=== PATIENT | male | born 1955 | race Caucasian/White ===

== ENCOUNTER 2016-04-26 09:58 | Emergency (ER) | payer OTHER ==
[~2016-04-26] VITALS: Ht 180.3 cm; Wt 87.1 kg
[~2016-04-26 09:58] MED LIST: ASPI81TA28 PO; B-CO-25 PO; HYDR-5688 PO; METO-217 PO; MULT-916 PO
[2016-04-26 10:02] VITALS: TEMP 36.5; Ht 180.3 cm; Wt 87.1 kg
[2016-04-26] MEDS ORDERED: METOPROLOL TARTRATE 1 MG/ML VIAL IV STA (10:29)
[2016-04-26 10:31] VITALS: O2SAT 96
[2016-04-26] MEDS ORDERED: METO50TA17 PO (10:50)
--- NOTE | 2016-04-26 10:58 | DIAGNOSTIC IMAGING REPORT ---
CHEST ONE VIEW PORTABLE CLINICAL HISTORY: Fever. Sepsis. Tachycardia. COMPARISON STUDY: Chest radiograph July 12, 2011. FINDINGS: Lung volumes are normal. No consolidation is present. There is no pneumothorax or pleural effusion. Cardiac size is normal. Mediastinal contours are normal. Linear left lower lung opacity likely reflects atelectasis or scarring. There is no evidence of pulmonary edema. IMPRESSION: No acute cardiopulmonary findings. Electronically signed by: Mickey Drummond M.D. 04/26/2016 10:56 AM Dictated Date/Time: 04/26/2016 10:55 AM
[2016-04-26 11:09] LABS: BASO % 0.6 %; BASO ABS # 0.03 K/uL (0-0.2); COMPLETE YES; EOS % 0.9 %; HEMATOCRIT 45.4 % (42-52); LYMPH % 13.5 %; LYMPH ABS # 0.73 K/uL (1.2-3.4); MEAN CELL VOLUME 80.9 fL (80-100); MEAN CORPUSCULAR HEMOGLOBIN 29.8 pg (25-34); MEAN CORPUSCULAR HGB CONC 36.8 g/dl (32-36); MEAN PLATELET VOLUME 9.1 fL (7.4-10.4); MONO % 8.3 %; NEUT % 76.7 %; PLATELET COUNT 236 K/uL (130-400); RED BLOOD COUNT 5.61 M/uL (4.7-6.1)
[2016-04-26 11:18] LABS: BLOOD UREA NITROGEN 18 mg/dl (7-18); BUN/CREATININE RATIO 15.3 (10-20); CALCIUM 9.1 mg/dl (8.5-10.1); CARBON DIOXIDE 27 mmol/L (21-32); CHLORIDE 107 mmol/L (98-107); GLUCOSE 134 mg/dl (70-99); POTASSIUM 4.4 mmol/L (3.5-5.1); SODIUM 141 mmol/L (136-145)
[2016-04-26 11:22] LABS: PARTIAL THROMBOPLASTIN RATIO 1.2; PROTHROMBIN TIME (PATIENT) 10.4 SECONDS (9.0-12.0)
[2016-04-26] MEDS ORDERED: APIX1TAB3 PO ×2 (12:57→12:58)
--- NOTE | 2016-04-26 12:59 | EMERGENCY ROOM VISIT NOTE ---
History Report prepared by Valentin: Jumana Galvin Under the Supervision of: Dr. All Triplett D.O. First contact with patient: 10:26 Chief Complaint: TACHYCARDIA Stated Complaint: FAST HEART RATE Nursing Triage Summary: Patient stated " I went into A-fib around 6:30pm last evening." Patient denies SOB or chest pains. Patient stated history of A-fib. PT takes metoprolol twice a day. Patient stated "I took a dose last evening around 7pm, 3 am & 9am this morning." History of Present Illness The patient is a 60 year old male who presents to the Emergency Room with complaints of persistent tachycardia that began around 0 last evening. The patient notes that he has a history of atrial fibrillation but states that he is normally in a normal sinus rhythm. He states that last night he noticed that his rate went into atrial fibrillation around 1830 this morning. The patient states that he takes Metoprolol for his Atrial fibrillation, noting that he took it at 1900 last evening and 0300 this morning. He additionally notes that he takes 81mg of aspirin daily. The patient denies any chest pain or shortness of breath. Source of History: patient Onset: 1829 last evening Position: other (global) Quality: other (tachycardia) Timing: other (persistent) Associated Symptoms: No SOB, No chest pain Review of Systems See HPI for pertinent positives & negatives. A total of 10 systems reviewed and were otherwise negative. Past Medical & Surgical Medical Problems: (1) Atrial fibrillation Family History Heart disease Social History Smoking Status: Never Smoker Smokeless Tobacco Use: No Alcohol Use: none Marital Status: Housing Status: lives with significant other Occupation Status: employed Current/Historical Medications Scheduled Aspirin (Aspirin Ec), 81 MG PO DAILY Metoprolol Tartrate (Metoprolol Tartrate), 50 MG PO BID Multiple Vitamins W/ Minerals (Multivitamin Adults 50+), 1 TAB PO DAILY Allergies Coded Allergies: NO KNOWN DRUG ALLERGIES (Verified Allergy, Unknown, ., 03/04/16) Physical Exam Vital Signs Date Time Temp Pulse Resp B/P Pulse Ox O2 Delivery O2 Flow Rate FiO2 04/26/16 12:21 78 20 113/85 98 Room Air 04/26/16 11:08 84 20 109/78 96 Room Air 04/26/16 10:41 96 114/85 04/26/16 10:37 96 20 114/85 97 Room Air 04/26/16 10:31 96 Room Air 04/26/16 10:20 96 Room Air 04/26/16 10:14 90 04/26/16 10:12 97 Room Air 04/26/16 10:02 36.5 89 18 127/87 97 Room Air Physical Exam CONSTITUTIONAL/VITAL SIGNS: Reviewed / noted above. GENERAL: Non-toxic in appearance. INTEGUMENTARY: Warm, dry, and [place]. HEAD: Normocephalic. EYES: without scleral icterus or trauma. ENT/OROPHARYNX: clear and moist. LYMPHADENOPATHY/NECK: Is supple without lymphadenopathy or meningismus. RESPIRATORY: Lungs clear and equal. CARDIOVASCULAR: Regular rate, irregular rhythm. GI/ABDOMEN: Soft and nontender. No organomegaly or pulsatile mass. No rebound or guarding. Normal bowel sounds. EXTREMITIES: Warm and well perfused. BACK: No CVA tenderness. NEUROLOGICAL: Intact without focal deficits. PSYCHIATRIC: normal affect. MUSCULOSKELETAL: Normally developed with good muscle tone. Medical Decision & Procedures ER Provider Diagnostic Interpretation: X ray results and stated below per my interpretation and radiology interpretation. CHEST ONE VIEW PORTABLE CLINICAL HISTORY: Fever. Sepsis. Tachycardia. COMPARISON STUDY: Chest radiograph July 12, 2011. FINDINGS: Lung volumes are normal. No consolidation is present. There is no pneumothorax or pleural effusion. Cardiac size is normal. Mediastinal contours are normal. Linear left lower lung opacity likely reflects atelectasis or scarring. There is no evidence of pulmonary edema. IMPRESSION: No acute cardiopulmonary findings. Electronically signed by: Mickey Drummond M.D. 04/26/2016 10:56 AM Dictated Date/Time: 04/26/2016 10:55 AM Laboratory Results 04/26/16 10:16 Red Blood Count 5.61, Mean Corpuscular Volume 80.9, Mean Corpuscular Hemoglobin 29.8, Mean Corpuscular Hemoglobin Concent 36.8, Mean Platelet Volume 9.1, Neutrophils (%) (Auto) 76.7, Lymphocytes (%) (Auto) 13.5, Monocytes (%) (Auto) 8.3, Eosinophils (%) (Auto) 0.9, Basophils (%) (Auto) 0.6, Neutrophils # (Auto) 4.14, Lymphocytes # (Auto) 0.73, Monocytes # (Auto) 0.45, Eosinophils # (Auto) 0.05, Basophils # (Auto) 0.03 04/26/16 10:15 Test 04/26/16 10:15 04/26/16 10:16 Anion Gap 7.0 mmol/L (3-11) Est Creatinine Clear Calc Drug Dose 71.4 ml/min Estimated GFR () 76.8 Estimated GFR (Non- 66.3 BUN/Creatinine Ratio 15.3 (10-20) Calcium Level 9.1 mg/dl (8.5-10.1) Troponin I < 0.015 ng/ml (0-0.045) Thyroid Stimulating Hormone (TSH) 3.430 uIu/ml (0.300-4.500) White Blood Count 5.40 K/uL (4.8-10.8) Red Blood Count 5.61 M/uL (4.7-6.1) Hemoglobin 16.7 g/dL (14.0-18.0) Hematocrit 45.4 % (42-52) Mean Corpuscular Volume 80.9 fL (80-100) Mean Corpuscular Hemoglobin 29.8 pg (25-34) Mean Corpuscular Hemoglobin Concent 36.8 g/dl (32-36) Platelet Count 236 K/uL (130-400) Mean Platelet Volume 9.1 fL (7.4-10.4) Neutrophils (%) (Auto) 76.7 % Lymphocytes (%) (Auto) 13.5 % Monocytes (%) (Auto) 8.3 % Eosinophils (%) (Auto) 0.9 % Basophils (%) (Auto) 0.6 % Neutrophils # (Auto) 4.14 K/uL (1.4-6.5) Lymphocytes # (Auto) 0.73 K/uL (1.2-3.4) Monocytes # (Auto) 0.45 K/uL (0.11-0.59) Eosinophils # (Auto) 0.05 K/uL (0-0.5) Basophils # (Auto) 0.03 K/uL (0-0.2) RDW Standard Deviation 34.7 fL (36.4-46.3) RDW Coefficient of Variation 12.0 % (11.5-14.5) Immature Granulocyte % (Auto) 0.0 % Immature Granulocyte # (Auto) 0.00 K/uL (0.00-0.02) Prothrombin Time 10.4 SECONDS (9.0-12.0) Prothromb Time International Ratio 1.0 (0.9-1.1) Activated Partial Thromboplast Time 31.1 SECONDS (21.0-31.0) Partial Thromboplastin Ratio 1.2 Laboratory results as stated above per my review. Medications Administered Medications (Trade) Dose Ordered Sig/Adam Route Start Time Stop Time Status Last Admin Dose Admin Metoprolol Tartrate (Lopressor Iv) 5 mg NOW STAT IV 04/26/16 10:29 04/26/16 10:31 DC 04/26/16 10:41 5 MG ECG Indication: tachycardia Rate (beats per minute): 90 Rhythm: atrial fibrillation Findings: no acute ischemic change, no ectopy ED Course 1027: Previous medical records were reviewed. The patient was evaluated in room A3. A complete history and physical examination was performed. 1029: Ordered Lopressor IV 5 mg IV. 1055: I discussed the patients case with Dr. Avitia, Cardiology. He states that the patient should be started on Eliquis and can follow up in the office. 1100: I reevaluated the patient and he is resting comfortably. I discussed Dr. Avitia, Cardiologys plan with him. He verbalized complete understanding and agreement. We are awaiting his lab results. 1248: I reevaluated the patient and he is resting comfortably. I discussed the exam findings and I discussed the treatment plan. He verbalized complete understanding and agreement. He is ready to go home. 1300: Ordered Eliquis Tab 5 mg PO. Medical Decision the differential was considered includes acute myocardial infarction, acute coronary syndrome, myocarditis, pericarditis, pericardial effusions /tamponad, esophageal perforation, thoracic aortic dissection, pulmonary embolism, pneumonia, pneumothorax, pancreatitis, shingles, acute cholecystitis, perforated abdominal viscus. This is a 60-year-old male who presents to the ED with a chief complaint of palpitations. The patient has a history of paroxysmal A. fib. He has not been in A. fib for at least a couple of years. The patient states that his symptoms started around 6 PM last night. He states that he took an extra dose of metoprolol 59 g around 3 AM. The patient denies any other symptoms. His vital signs are normal. An EKG shows A. fib at a rate of 90. Blood work was unremarkable. Chest x-ray was also normal. The patient was given 5 mg of IV Lopressor here. He remained in atrial fibrillation. I spoke with Dr. Avitia about the patient. He requested the patient be given Eliquis 5mg twice a day until he follows up with him next week. He anticipates that the patient may spontaneously convert to a sinus rhythm as he has done in the past. He is felt to be stable for discharge. Consults Time Called: 1030 Consulting Physician: Dr. Avitia, Cardiology Returned Call: [phone] I discussed the patients case with Dr. Avitia, Cardiology. He states that the patient should be started on Eliquis and can follow up in the office. Impression Primary Impression: Paroxysmal atrial fibrillation Scribe Attestation The scribe's documentation has been prepared under my direction and personally reviewed by me in its entirety. I confirm that the note above accurately reflects all work, treatment, procedures, and medical decision making performed by me. Departure Information Dispostion Home / Self-Care Prescriptions Apixaban (ELIQUIS) 5 Mg Tab 1 TAB PO BID, #14 TABS Prov: All Triplett D.O. 04/26/16 Referrals No Doctor, Assigned (PCP) Jeb Avitia M.D. Patient Instructions My [facility] Additional Instructions Take Eliquis twice a day until advised by Dr. Avitia. Call their office on Friday if they have not contact you by that time. If your symptoms persist over the weekend, call the on-call number and talk with Dr. Avitia on Friday.
[2016-04-26] MEDS ORDERED: APIXABAN 2.5 MG TAB PO ONE (13:00)
[2016-04-26 13:12] VITALS: BP 116/79; PULSE 89; O2SAT 97
== END 2016-04-26 13:16 | disposition home or self-care (01) ==
LOC: C.EDB 09:59 → C.EDA 13:16
DX: I48.0 Paroxysmal atrial fibrillation (principal); Z79.82 Long term (current) use of aspirin; Z79.899 Other long term (current) drug therapy; Z82.49 Family history of ischemic heart disease and other diseases of the circulatory system

== ENCOUNTER → 2016-07-04 | Outpatient (CLI) | payer OTHER ==
[~2016-07-04] MED LIST changes: +APIX1TAB3 PO; -B-CO-25 PO; -HYDR-5688 PO; -METO-217 PO; +METO50TA17 PO
[2016-07-04 11:04] LABS: BLOOD UREA NITROGEN 19 mg/dl (7-18); BUN/CREATININE RATIO 17.3 (10-20); CALCIUM 8.7 mg/dl (8.5-10.1); CARBON DIOXIDE 25 mmol/L (21-32); CHLORIDE 108 mmol/L (98-107); CHOLESTEROL 143 mg/dl (0-200); GLUCOSE 97 mg/dl (70-99); POTASSIUM 4.3 mmol/L (3.5-5.1); SODIUM 140 mmol/L (136-145); TRIGLYCERIDES 49 mg/dl (0-150); VERY LOW DENSITY LIPOPROT CALC 10 mg/dl
[2016-07-04 11:07] LABS: CHOLESTEROL/HDL RATIO 3.4; HDL CHOLESTEROL 42 mg/dl; LDL CHOLESTEROL CALCULATED 91 mg/dl
== END | disposition home or self-care (01) ==
LOC: C.LAB1850 09:23
PROVIDERS: ATTEND Internal Medicine
DX: Z11.59 Encounter for screening for other viral diseases (principal); I48.0 Paroxysmal atrial fibrillation; Z12.5 Encounter for screening for malignant neoplasm of prostate

== ENCOUNTER 2020-05-19 06:48 | Observation (INO) ==
--- NOTE | 2020-04-05 16:10 | PAT Medication Instructions ---
Medication Instructions Date of Service April 05, 2020 Home Medications Medication Instructions Recorded metoprolol tartrate 50 mg tablet 75 mg PO BID #270 tab 06/04/19 Multivitamin 50 Plus 1 tab PO QAM acetaminophen [Tylenol Extra Strength] 1,000 mg PO Q6H PRN metoprolol tartrate 50 mg tablet 75 mg PO BID apixaban [Eliquis] 2.5 mg PO BID PRN flecainide 50 mg PO BID meloxicam 15 mg PO QAM PRN ASK your surgeon for instructions meloxicam 15 mg PO QAM PRN ASK your prescriber and surgeon apixaban [Eliquis] 2.5 mg PO BID PRN (in order for spinal anesthesia, Eliquis needs to be stopped 72 hours/3 days before surgery. Please check if okay with doctor that prescribes this to you) DO NOT take the morning of surgery Multivitamin 50 Plus 1 tab PO QAM Take morning of surgery With a small sip of water, OTHERWISE NOTHING TO EAT OR DRINK AFTER MIDNIGHT: acetaminophen [Tylenol Extra Strength] 1,000 mg PO Q6H PRN (okay to take up to 4 hours prior to surgery if needed) metoprolol tartrate 50 mg tablet 75 mg PO BID flecainide 50 mg PO BID Take evening before surgery acetaminophen [Tylenol Extra Strength] 1,000 mg PO Q6H PRN (if needed) metoprolol tartrate 50 mg tablet 75 mg PO BID flecainide 50 mg PO BID Other Notes If you have any questions please call us at [phone] or [phone] or [phone] or [phone]
--- NOTE | 2020-04-25 12:44 | Communication Note ---
Pt tested Covid positive on 04/12/20. Pt had symptoms of low grade fever, congestion, diarrhea and nausea. 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 Did speak with Angela's office- it is presumed patient will get preop Covid testing 05/10/20 (which if four weeks or 28 days from Covid positive test). Pt is feeling better. Therefore, patient can at this time proceed as scheduled and will await results of preop Covid testing.
--- NOTE | 2020-05-13 13:45 | History and Physical Report ---
DATE OF ADMISSION: 05/19/2020 CHIEF COMPLAINT: Bilateral knee pain and discomfort, left side greater than the right. 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 He has been a patient of Dr. Jay in the past. He has got a long history of bilateral knee pain and discomfort, describes it has gotten worse over time. The left knee bothers him more than the right. He has had injection which helped him for about a week and that is about it. It is global pain. The more he is up and walks, the more his knees hurt. He is more difficulty doing his job due to his knee pain. As the day goes on, his knee became more painful and more unstable. It gives out on him intermittently. He would like to proceed with a knee replacement surgery. PAST MEDICAL HISTORY: 1. Atrial fibrillation, followed by Dr. Avitia, but off all blood thinners and in sinus rhythm on his preoperative EKG. 2. Hypertension. 3. TMJ. PAST SURGICAL HISTORY: Include: 1. Cataract surgery. 2. Colonoscopy. 3. Oral surgery. ALLERGIES: None. CURRENT MEDICINES: Include: 1. Tylenol. 2. Flecainide 50 mg twice a day. 3. Metoprolol 75 mg twice a day. 4. Multivitamin. SOCIAL HISTORY: Significant for 64-year-old male. He is . Works as a [employer]. Does not smoke. FAMILY HISTORY: Noncontributory. REVIEW OF SYSTEMS: Negative for diabetes, neurologic problems, vascular problems or bleeding disorders. He does have a history of atrial fibrillation, well managed. He is currently in sinus rhythm. No chest pain or shortness of breath. No history of DVT or PE. PHYSICAL EXAMINATION: GENERAL: Shows a pleasant, middle-aged male, looks to be in pretty good health. HEENT: Benign. NECK: Supple, no lymphadenopathy. LUNGS: Clear to auscultation. HEART: Has a regular rate and rhythm. ABDOMEN: Soft, nontender, nondistended. EXTREMITIES: Grossly neurovascularly intact except as follows. Examination of both knees reveals the patient ambulates independently. He has got varus alignment to both knees. Examination of the left knee reveals bony hypertrophy medially. He is tender over the medial joint line. Small knee effusion. He has got a varus thrust with weightbearing. Range of motion 5-120. No instability. Examination of the right knee reveals a similar varus deformity. Slight varus thrust. Tender over the medial joint line. Small knee effusion. Range of motion 5-125. X-RAYS: X-rays of both knees were reviewed. Shows advanced bilateral knee DJD. The left side is a bit worse than the right. He has got complete loss of medial joint space, osteophytes, and subchondral sclerosis. ASSESSMENT: A 64-year-old male st[place] with a history of atrial fibrillation, well controlled with advanced bilateral knee degenerative joint disease. He has failed conservative treatment. He would like to have his left knee replaced. PLAN: We will take him to the operating room and do a left total knee replacement. The risks and benefits of this procedure were explained to the patient including but not limited to DVT, PE, , infection, neurological injury, vascular injury, bleeding problem, pain, limited range of motion, stiffness, failure to relieve symptoms, incomplete relief of symptoms, need for further surgery in future, fracture, leg length inequality, nerve palsy, etc. The patient understands and desires to proceed. Informed consent was obtained. We will use aspirin for DVT prophylaxis. We will make sure he takes his flecainide and metoprolol the morning of surgery. He is going to be discharged to home using [facility] home health program in his 's assistance along with his daughter.
--- NOTE | 2020-05-15 16:08 | Anesthesiology Consultation ---
Date of Service May 15, 2020 Assessment & Plan (1) Encounter for pre-operative examination: Per communication note from Cherie Hernández PA-C on 04/25/2020: "Pt tested Covid positive on 04/12/20. Pt had symptoms of low grade fever, congestion, diarrhea and nausea. 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 Did speak with Angela's office- it is presumed patient will get preop Covid testing 05/10/20 (which if four weeks or 28 days from Covid positive test). Pt is feeling better. Therefore, patient can at this time proceed as scheduled and will await results of preop Covid testing." Patient had new covid test 05/15/20. Awaiting results. Chart Review Chart Review: Acceptable Risk for Surgery and Patient NOT seen in Pre Admission Testing History Surgery Operation Date: 05/19/20 07:00 Proposed Procedures p Left Total Knee Replacement - Alcides Collado MD Height/Weight Height: 5 ft 10 in Weight: 90.718 kg Allergies Allergy/AdvReac Type Severity Reaction Status Date / Time No Known Drug Allergies Allergy Unknown . Verified 03/24/20 10:52 Medications Home Medications Medication Instructions Recorded Confirmed Last Taken Multivitamin 50 Plus 1 tab PO QAM 03/05/18 03/24/20 03/05/18 acetaminophen [Tylenol Extra 1,000 mg PO Q6H PRN 03/05/18 03/24/20 12/13/19 Strength] metoprolol tartrate 50 mg tablet 75 mg PO BID #270 tab 06/04/19 03/24/20 12/13/19 apixaban [Eliquis] 2.5 mg PO BID PRN 03/24/20 03/24/20 Unknown flecainide 50 mg PO BID 03/24/20 03/24/20 Unknown meloxicam 15 mg PO QAM PRN 03/24/20 03/24/20 Unknown Wheeled Walker #1 ea 05/04/20 Unknown Past Medical History Medical History (Updated 05/15/20 @ 16:05 by Gui Urbina) Atrial fibrillation medication controlled > follows Dr. Marks Hypertension Migraine Osteoarthritis Right knee DJD Past Family History Family History Grandfather (Paternal) Myocardial infarction Father Prostate cancer Diabetes Denies family history of Ovarian cancer Breast cancer Colorectal cancer Past Surgical History Surgical History Colonic polyp with removal History of cataract surgery RT/LEFT History of colonoscopy History of tooth extraction Social History Smoking Status: Never smoker Do You Dip or Chew Tobacco: No Hx Alcohol Use: No Hx Substance Use: No substance use type: does not use Testing Laboratory Results 04/24/20 WBC: 6.18 H/H: 15.3/42.6 PLATELETS: 250 SODIUM: 140 POTASSIUM: 3.9 CHLORIDE: 108 CO2: 25 BUN: 14 CREATININE: 1.02 GLUCOSE: 101 PT: 10.3 PTT: 30.1 INR: 1.0 Electrocardiogram Date: 04/24/20 Findings: + SB @ (56bpm) *Poor data quality, interpretation may be adversely affected. Compared to EKG from 03/05/18, ST no longer elevated in anterior leads. Chest X-Ray Date: 04/24/20 Findings: + NAD
[~2020-05-19 06:48] MED LIST changes: +ACETAMINOPHEN 500 MG TAB PO SCH; -APIX1TAB3 PO; -ASPI81TA28 PO; +BUPIVACAINE 0.5 % 5 MG/1 ML PF 10ML VIAL ONE; +BUPIVACAINE LIPOSOME/PF 266 MG, BUPIVACAINE/EPINEPHRINE 50 ML, SODIUM CHLORIDE 0.9% 30 ... INFIL SCH; +FAMOTIDINE 20 MG TAB PO SCH; +GABAPENTIN 300 MG CAP PO SCH; +LR 500ML BOLUS, THEN 15ML/HR IV SCH; +LR 60ML/HR IV SCH; -METO50TA17 PO; +METOCLOPRAMIDE HCL 10 MG TABLET PO SCH; -MULT-916 PO; +ROPIVACAINE 0.5% 5 MG/ML 30 ML VIAL ONE; +TRANEXAMIC ACID 1,000 MG **IV Intra-op IV SCH; +TRANEXAMIC ACID 1,000 MG **IV Pre-op IV SCH
[2020-05-19] MEDS ORDERED: KETAMINE 50 MG/5 ML SYRINGE ONE (07:28)
[2020-05-19] MEDS ORDERED: MIDAZOLAM HCL 1 MG/ML 2ML VIAL ONE ×2 (07:28→08:09)
[2020-05-19] MEDS ORDERED: LIDOCAINE HCL 2% 2 ML VIAL/AMP(20MG/ML) INFIL ONE (08:05)
[2020-05-19] MEDS ORDERED: GLYCOPYRROLATE 0.2 MG/ML VIAL ONE (08:05)
[2020-05-19] MEDS ORDERED: ONDANSETRON INJ 2 MG/ML 2 ML VIAL ONE (08:05)
[2020-05-19] MEDS ORDERED: PROPOFOL IV EMULSION 10 MG/ML 20 ML VIAL IV ONE (08:05)
[2020-05-19] MEDS ORDERED: ATROPINE SULFATE 0.1 MG/ML 10ML SYR IV PRN (08:17)
[2020-05-19] MEDS ORDERED: ONDANSETRON INJ 2 MG/ML 2 ML VIAL IV PRN ×2 (08:17→11:13)
[2020-05-19] MEDS ORDERED: KETOROLAC 30 MG/ML VIAL IV PRN (08:17)
[2020-05-19] MEDS ORDERED: HYDROmorphone INJ 1 MG/ML SYRINGE IV PRN (08:17)
[2020-05-19] MEDS ORDERED: ePHEDrine sulfate 50 MG/ML AMP IV PRN (08:17)
[2020-05-19] MEDS ORDERED: SODIUM CHLORIDE 0.9% PF 50 ML VIAL ONE (08:33)
[2020-05-19] MEDS ORDERED: EPINEPHrine INJ 1 MG/ML AMP ONE (08:33)
[2020-05-19] MEDS ORDERED: BUPIVACAINE 0.25% 30 ML VIAL ONE (08:33)
[2020-05-19] MEDS ORDERED: BUPIVACAINE LIPOSOME 1.3% 266 MG/20 ML VIAL ONE (08:33)
[2020-05-19] MEDS ORDERED: BACITRACIN INJ 50,000 UNIT VIAL ONE (08:33)
--- NOTE | 2020-05-19 08:42 | History & Physical Bridge Note ---
Date of Service May 19, 2020 History & Physical Bridge Note I have examined the patient, reviewed the History & Physical and in the interval since the performance of the History & Physical I have noted the following changes of clinical significance: no changes noted
[2020-05-19] MEDS: ceFAZolin 2000MG 2,000 MG/15 ML SYR IV SCH ×2 (08:47→16:57)
--- NOTE | 2020-05-19 10:31 | Post Operative Brief Note ---
PG Immediate Post Op with CF Date of Surgery May 19, 2020 Pre & Post Diagnosis Operation Date: 05/19/20 08:50 Pre-Op Diagnosis: Left Knee Advanced Degenerative Joint Disease Post-Op Diagnosis: Left Knee Advanced Degenerative Joint Disease I identified the patient and participated in the time-out.: Yes Procedure Operation Date: 05/19/20 08:50 Actual Procedures p Left Total Knee Replacement(Left) - Alcides Collado MD Surgeon Alcides Collado MD Plywood Layup Line Core Feeder LUCERO Singletary Estimated Blood Loss 50 Findings Consistent with Post-Op Diagnosis Fluids 1000 cc Specimens Specimen Description: A. Left Knee Bone and Tissue Drains Fitzgerald Catheter Anesthesia Type Spinal MAC Complications none Disposition Accompanied Patient To Recovery: No Disposition: Recovery Room
--- NOTE | 2020-05-19 10:48 | XRay Report ---
LEFT KNEE 2 VIEWS History: Left total knee arthroplasty. Degenerative arthritis. Postop. FINDINGS: The patient is status post a left total knee arthroplasty. The hardware is intact. No fract ure or dislocation. Skin earline are in place. IMPRESSION: Left total knee arthroplasty. No evidence for hardware complication. ACT 112: Negative or not required by law. Electronically signed by: Don Silverman M.D. 05/19/2020 10:47 AM
--- NOTE | 2020-05-19 11:02 | Anesthesiology Progress Note ---
Date of Service May 19, 2020 Anesthesia Post Procedure Vital Signs Vital Signs: Temp Pulse Pulse Resp BP Pulse Ox 05/19/20 10:55 36.4 C L 61 16 119/66 98 05/19/20 10:45 62 16 113/71 100 05/19/20 10:37 36.1 C L 64 16 104/71 100 05/19/20 07:18 36.6 C 67 16 164/86 H 97 Pain Intensity Left Knee: Pain Intensity: 0 Transfer of Care Handoff Completed per policy Notes Mental Status: alert / awake / arousable Patient Amnestic to Procedure: Yes Nausea / Vomiting: adequately controlled Pain: adequately controlled Airway Patency, RR, SpO2: stable & adequate BP & HR: stable & adequate Hydration State: stable & adequate Neuraxial Anesthesia: was administered and sensory block is resolving Anesthetic Complications: no major complications apparent
[2020-05-19] MEDS ORDERED: TAMSULOSIN HCL 0.4 MG CAP PO PRN (11:13)
[2020-05-19] MEDS ORDERED: NALOXONE HCL 0.4 MG/1 ML VIAL/CARP IV PRN (11:13)
[2020-05-19] MEDS ORDERED: MAGNESIUM HYDROXIDE SUSP 30 ML UDC PO PRN (11:13)
[2020-05-19] MEDS ORDERED: METOCLOPRAMIDE HCL INJ 5 MG/ML 2 ML VIAL IV PRN (11:13)
[2020-05-19] MEDS ORDERED: HYDROmorphone INJ 0.5 MG/0.5 ML SYR IV PRN (11:13)
[2020-05-19] MEDS ORDERED: bisacodyL 10 MG SUPP PR PRN (11:13)
[2020-05-19] MEDS ORDERED: diphenhydrAMINE Capsule 25 MG CAP PO PRN (11:13)
[2020-05-19] MEDS ORDERED: oxyCODONE HCL IR 5 MG TAB (IMMEDIATE RELEASE) PO PRN (11:13)
[2020-05-19] MEDS ORDERED: ALUMINUM/MAGNESIUM SUSP 30 ML UDC PO PRN (11:13)
[2020-05-19] MEDS ORDERED: SODIUM CHLORIDE 0.9% 1000ML 1,000 ML IV SCH (11:13)
[2020-05-19] MEDS: KETOROLAC 30 MG/ML VIAL IV SCH ×2 (12:01→16:56)
[2020-05-19] MEDS: ACETAMINOPHEN 500 MG TAB PO SCH ×2 (13:19→22:05)
[2020-05-19] MEDS ORDERED: TRANEXAMIC ACID / 0.7% NACL 1,000 MG/100 ML BAG IV SCH (16:34)
[2020-05-19] MEDS: ASCORBIC ACID 500 MG TAB PO SCH (16:55)
[2020-05-19] MEDS: FERROUS GLUCONATE 324 MG TAB PO SCH (16:55)
--- NOTE | 2020-05-19 17:24 | Operative Report ---
Post Operative Report Pre & Post Diagnosis Operation Date: 05/19/20 08:50 Pre-Op Diagnosis: Left Knee Advanced Degenerative Joint Disease Post-Op Diagnosis: Left Knee Advanced Degenerative Joint Disease I identified the patient and participated in the time-out.: Yes Procedure Operation Date: 05/19/20 08:50 Actual Procedures p Left Total Knee Replacement(Left) - Alcides Collado MD Surgeon Alcides Collado MD Software Quality Manager LUCERO Singletary Estimated Blood Loss 50 Findings Consistent with Post-Op Diagnosis Operative findings revealed advanced left knee DJD. He had extensive grade 4 oyff-so-[id number] disease in the medial compartment with a more spotty grade 4 changes in both felt patellofemoral and lateral compartments. He had a fixed varus deformity to his knee and a slight flexion contracture. Large knee joint effusion. Osteophytes primarily in the medial compartment. Fluids 1000 cc Specimens Left knee sent for pathology. Drains None. Anesthesia Type Spinal MAC Complications none Disposition Accompanied Patient To Recovery: No Disposition: Recovery Room Indications Patient is a 64-year-old very active [place] who has had a long history of bilateral knee pain discomfort left side greater than right. He failed all conservative measures. He elected to see with a left total knee arthroplasty. Description of Procedure Operative implants consisted of: 1 Biomet Vanguard size 75 left posterior stabilized femoral component. 2. Biomet size 75 tibial tray. 3. 10 mm posterior stabilized polyethylene insert. 4. 31 x 8 all polypatella. The patient was taken to the operating identified placed on the operating table supine position protectors were properly padded. IV antibiotics tried by anesthesia team. Spinal anesthetic and abductor canal block had been brought in the holding area. Fitzgerald catheter was placed in sterile fashion. A left thigh turn was then placed in the left lower extremities and prepped and draped in usual sterile fashion. The left leg was elevated exsanguinated with use of an Esmarch and tourniquet placed at 300 mmHg. An anterior approach left knee was then performed to longitudinal incision centered over the patella. Sharp dissection got through subcutaneous tissue down the extensor mechanism. A medial parapatellar arthrotomy incision was made. Some subperiosteal dissection was carried out medially. The fat pad was resected beneath patella tendon. The lateral patellofemoral ligaments were released. The patella was subluxated laterally knee was flexed. The osteophytes were taken off distal femur. The ACL and PCL were then released in the distal femur and the tibia subluxated anteriorly. The external tibial alignment jig was then placed in the interface the tibia and adjusted 14 mm medially. Proximal tibial cut was made remove millimeter bone from the most deficient aspect of the medial tibial plateau. Some osteophytes were taken off medial and posterior medially. I did have to downsize the tibial tray slightly in order to get appropriate rotation. A size 75 tibial tray was selected. Attention drawn the femur. The distal femur was entered with a sharp drill bit intramedullary canal was suction. A left 6 degree valgus cutting guide was placed. This femoral cutting block was pinned in place. Distal femoral cut was made to take an additional 3 mm of bone off distal femur. The femur was then sized to a size 75. The AP cutting block was pinned parallel to the epicondylar axis which was 5 degrees of external rotation. The anterior cut, anterior chamfer, posterior cut, posterior chamfer cuts were made. Box cutting guide was placed in just slight lateral box cut was made. The knee was flexed. The remnants of medial lateral menisci were excised. The osteophytes were taken off the posterior aspect of the femur. A trial femoral component was placed. The tibial tray was pinned in maximum external rotation and the drill and stem punch were used to create defect in proximal tibia for the tibial tray. Knee was then trialed and the 10 mm insert fit most appropriately. Attention drawn the patella. Nipride the patella was cleaned of all soft tissues. Patella thickness measured 23 mm in thickness was cut down to 14. Was sized to a size 31 patella. The lug holes were drilled for 31 patella. The lateral osteophyte is moved. Patella button was placed. Knee was taken through range of motion patella tracked nicely with no thumbs test. Attention drawn to placing permanent components. All trial components were removed. A bone plug was placed in the distal femur limit blood loss. A double batch [place] G cement was mixed. A Biomet Vanguard is size 75 left posterior stabilized femoral component, size 75 tibial tray, 10 mm posterior stabilized polyethylene insert, 31 x 8 all polypatella were then cemented in place. The knee was brought out into full extension total cement hardened. Final cement check was then performed. Pericapsular tissues were injected with total 100 cc of combination of 20 cc of Exparel, 30 cc of normal saline, 50 cc of quarter percent Marcaine with epinephrine. Patient did receive 1 g tranexamic acid. The tear was then let down for final tourniquet time of 60 minutes. Hemostasis assured use electrocautery. Extensor mechanism closed with combination 1 PDS suture and 1 Vicryl suture in [id number]-[id number] fashion. Extensor mechanism checked found to be intact the subcutaneous tissue then closed with 2 Dexon suture in a buried interrupted fashion skin was closed skin earline. The leg was then cleaned and dried a sterile dressing composed Xeroform, 4 x 4's, sterile cast padding, Doyle bandage applied. Patient then transferred to the recovery room in stable condition. Patient tolerated procedure well and there were no complications. I attest to the content of the Intraoperative Record and any orders documented therein. Any exceptions are noted below.
[2020-05-19] MEDS: METOPROLOL TARTRATE 25 MG TAB PO SCH (20:32)
[2020-05-19] MEDS: TAPENTADOL HCL ER 50 MG TABCR PO SCH (20:32)
[2020-05-19] MEDS: DOCUSATE SODIUM 100 MG CAP PO SCH (20:33)
[2020-05-19] MEDS: ASPIRIN 81 MG ECTAB PO SCH (20:33)
[2020-05-19] MEDS: FLECAINIDE ACETATE 100 MG TABLET PO SCH (20:33)
[2020-05-19] MEDS ORDERED: SENNA 8.6 MG TAB PO SCH (21:00)
[2020-05-20] MEDS: KETOROLAC 30 MG/ML VIAL IV SCH ×2 (00:14→05:38)
[2020-05-20] MEDS: ceFAZolin 2000MG 2,000 MG/15 ML SYR IV SCH (01:03)
[2020-05-20] MEDS: ACETAMINOPHEN 500 MG TAB PO SCH (05:38)
[2020-05-20 06:19] LABS: Hematocrit (blood only) 37.6 % (42-52); Hemoglobin 13.1 g/dL (14.0-18.0); Mean Corpuscular Hemoglobin 29.2 pg (25-34); Mean Corpuscular Hgb Conc 34.8 g/dL (32-36); Mean Corpuscular Volume 83.7 fL (80-100); Mean Platelet Volume 8.9 fL (7.4-10.4); Platelet Count 192 K/uL (130-400); RDW Coefficient of Variation 12.5 % (11.5-14.5); RDW Standard Deviation 37.8 fL (36.4-46.3); Red Blood Count 4.49 M/uL (4.7-6.1); White Blood Count 7.74 K/uL (4.8-10.8)
[2020-05-20 06:40] LABS: BUN Creatinine Ratio 15.8 (10-20); Calcium 7.9 mg/dl (8.5-10.1); Creatinine Clr Calc Pharmacy 74.7 ml/min; Est GFR (African American) 77.8; Est GFR (Non-African American) 67.1; Potassium 4.4 mmol/L (3.5-5.1)
[2020-05-20] MEDS ORDERED: dexAMETHasone 4 MG TAB PO SCH (08:00)
[2020-05-20] MEDS: DOCUSATE SODIUM 100 MG CAP PO SCH (08:24)
[2020-05-20] MEDS: ASCORBIC ACID 500 MG TAB PO SCH (08:25)
[2020-05-20] MEDS: FLECAINIDE ACETATE 100 MG TABLET PO SCH (08:25)
[2020-05-20] MEDS: FERROUS GLUCONATE 324 MG TAB PO SCH (08:25)
[2020-05-20] MEDS: ASPIRIN 81 MG ECTAB PO SCH (08:26)
[2020-05-20] MEDS: METOPROLOL TARTRATE 25 MG TAB PO SCH (08:26)
[2020-05-20] MEDS ORDERED: CEROVITE ADV FORMULA TAB PO SCH (09:00)
[2020-05-20] MEDS ORDERED: MULTIVITAMIN TAB PO SCH (09:00)
--- NOTE | 2020-05-20 09:36 | Progress Notes ---
DATE: 05/20/2020 SUBJECTIVE: A 64-year-old gentleman postop day 1 from a left knee replacement. He is doing pretty well. Had a pretty good night. No chest pain or shortness of breath. Not feeling dizzy or lightheaded. OBJECTIVE: VITAL SIGNS: Temperature 36.6. Vital signs stable. GENERAL: Shows a pleasant elderly male. He is sitting up on bed, looks pretty comfortable. LUNGS: Clear to auscultation. HEART: Has a regular rate and rhythm. ABDOMEN: Soft, nontender, nondistended. EXTREMITIES: Grossly neurovascularly intact except as follows. Examination of left lower extremity reveals the leg to be well aligned. Dressing is clean, dry, and intact. He can dorsiflex and plantarflex his foot appropriately. He can do a pretty good straight leg raise. LABORATORY DATA: Hemoglobin is 13.1. Hematocrit 37.6. Electrolytes are stable. ASSESSMENT: A 64-year-old gentleman postop day 1 from a left knee replacement, doing pretty well. His pain is controlled. He is neurologically intact. PLAN: 1. DVT prophylaxis including thigh-high TEDs, SCDs, and aspirin twice a day. He apparently does take intermittent Eliquis when needed. Will use the aspirin unless further need. 2. PT/OT. Weight bear as tolerated. Left total knee protocol. 3. Pain control, doing well with current pain regimen. 4. Disposition: Plan to discharge to home likely with some home health later today.
[2020-05-20] MEDS: TAPENTADOL HCL ER 50 MG TABCR PO SCH (09:53)
--- NOTE | 2020-05-22 15:49 | Discharge Summary ---
Date of Service May 22, 2020 Discharge Data Consultations 05/19/20 11:13 Consult Case Management - Discharge Planning Routine Procedures Performed Operation Date: 05/19/20 08:50 Actual Procedures p Left Total Knee Replacement(Left) - Alcides Collado MD Hospital Course (1) Status post total left knee replacement: This patient is a 64 year old male admitted on 05/19/20 and underwent total knee arthroplasty. He tolerated the procedure well and there were no complications. Transferred to the PACU post op and later to the orthopedic floor for further care. He was given ancef for antibiotic prophylaxis. He was also given CORTES stockings, SCDs, and aspirin for DVT prophylaxis. Hemoglobin, hematocrit, and vital signs were monitored during his hospital stay and remained stable. Did not require any blood transfusions. There were no complications during his hospital stay. By post op day #1 he patient was tolerating a regular diet, pain was reasonably controlled with oral pain medicine, and he was participating in physical therapy. On post op day #1 the patient was discharged home and set up with home health care. He was given printed discharge instructions including prescriptions for extra strength tylenol, aspirin, and oxycodone. Continue physical therapy, weight bearing as tolerated. Continue CORTES stockings. Follow up approximately 2 weeks post op or sooner if there are problems or concerns. Coding Level of Care Code None Diagnoses Status post total left knee replacement Z96.652
== END 2020-05-20 10:55 | disposition home health service (06) ==
LOC: 3E 06:48 → ASU 06:48

== ENCOUNTER 2023-10-06 11:14 | Inpatient (IN) ==
--- NOTE | 2023-10-06 11:44 | Emergency Department Note ---
History of Present Illness General Chief complaint: Abdominal Pain Stated complaint: GALLBLADDER HURTING Time Seen by Provider: 10/06/23 11:26 History of Present Illness Maximum Pain Intensity: 5 Patient is a 68-year-old male with past medical history significant for A-fib on apixaban, hypertension, hypothyroidism, who returns to the emergency department for ongoing right upper quadrant abdominal pain. Patient reports that he has been having episodes of postprandial right upper quadrant abdominal pain for 6 months. It has been getting more frequent in the last 3 to 4 months. This last episode started on Friday. He admits to eating ice cream and whoopie pies, which he thinks triggered his symptoms. He has had a constant aching pain in the right upper quadrant since then. He was seen in the emergency department overnight Friday into Friday. He had a thorough workup including blood work, chest x-ray, EKG, CT of the abdomen and pelvis and gallbladder ultrasound which noted stones and sludge, but no evidence for acute cholecystitis. Patient was discharged home. He states that the pain is never really gone away. It is a constant 5/10, and got worse again overnight, with going up to an 8/10. He has tried some Tylenol at home and has been trying to make better food choices, he had Jell-O, pretzels, Gatorade and a hard-boiled egg yesterday. Family did call and make an appointment with general surgery, Dr. Gibbs, but the appointments not for another 2 days and they did not feel that he could wait. He is nauseous but has not vomited. No chest pain or shortness of breath. He has felt a little constipated since his levothyroxine was increased to 2 months ago, and tried taking a stool softener. No urinary symptoms. Home Medications Medication Instructions Recorded Confirmed Type qhjwuirxsosi-guarqwjc-rpeocm 1 tab PO QAM 03/05/18 10/06/23 History tablet (Multivitamin 50 Plus tablet) betamethasone dipropionate 0.05 % 1 applic topical BID PRN skin 12/31/22 10/06/23 Rx topical ointment irritation #45 grams flecainide 100 mg tablet 100 mg PO Q12H #180 tabs 04/29/23 10/06/23 Rx metoprolol tartrate 50 mg tablet 75 mg (1.5 x 50 mg) PO BID #270 06/13/23 10/06/23 Rx tabs apixaban 5 mg tablet (Eliquis) 5 mg PO BID #180 tabs 06/29/23 10/06/23 Rx levothyroxine 50 mcg tablet 50 mcg PO DAILY #30 tabs 08/22/23 10/06/23 Rx acetaminophen 500 mg tablet 1,000 mg PO DIRECTED PRN Pain 10/04/23 10/06/23 History (Tylenol Extra Strength) Allergies Allergy/AdvReac Type Severity Reaction Status Date / Time No Known Allergies Allergy Verified 10/06/23 14:14 Past Med/Surg History Problem List (Updated 10/06/23 @ 17:22 by SAM ArevaloC) Atrial fibrillation medication controlled > follows Dr. Marks Hypothyroidism Acute cholecystitis (Acute) Abdominal pain, acute (Acute) Cholelithiasis (Acute) Right thyroid nodule Medical History Hypothyroidism Anticoagulant long-term use Atrial fibrillation medication controlled > follows Dr. Marks Osteoarthritis Migraine Hypertension Surgical History Status post total left knee replacement Colonic polyp with removal History of colonoscopy History of tooth extraction History of cataract surgery RT/LEFT Family History Grandfather (Paternal) Myocardial infarction Father Prostate cancer Diabetes Denies family history of Ovarian cancer Breast cancer Colorectal cancer Social History Smoking Status: Never smoker Second Hand Exposure: No; Do You Dip or Chew Tobacco: No; Hx Alcohol Use: No Hx Substance Use: No Preferred Language: Russian Communication Ability: Effective Ship Loader Required: No Beliefs That Will Affect Care: None marital status: Current Living Situation: Spouse current occupational status: employed current occupation: Crop farming Feels Safe at Home: Yes Childhood Exposure to Second-Hand Smoke: No Dental Care, Regularly: Yes Physical Activity Frequency: Daily Seatbelt Use: always Sunscreen Use: No Assistive Devices: Glasses and Walker Review of Systems A total of 10 systems reviewed and were otherwise negative Physical Exam Vital Signs Vital Signs - 24 hr 10/06/23 11:22 10/06/23 15:04 10/06/23 15:16 Temperature 36.5 C Temperature Source Temporal Artery Scan Pulse Rate 70 70 Pulse Rate [Apical] 63 Respiratory Rate 18 20 Respiratory Effort / Characteristics Non-Labored Spontaneous Non-Labored Spontaneous Respiratory Depth Normal Normal Respiratory Pattern Regular Blood Pressure 163/82 H Blood Pressure [Right Arm] 122/91 Blood Pressure Mean 109 Blood Pressure Mean [Right Arm] 101 Blood Pressure Position Sitting Pulse Oximetry 98 97 Oxygen Delivery Method Room Air Room Air Sepsis Recent Fever Within 48 Hours No Sepsis New/Unexplained Change in Mental Status No Sepsis Action Taken by Nursing No Action Required 10/06/23 17:03 10/06/23 18:18 Temperature Temperature Source Pulse Rate Pulse Rate [Apical] 77 76 Respiratory Rate 20 20 Respiratory Effort / Characteristics Non-Labored Spontaneous Non-Labored Spontaneous Respiratory Depth Normal Normal Respiratory Pattern Regular Regular Blood Pressure Blood Pressure [Right Arm] 189/90 H 177/90 H Blood Pressure Mean Blood Pressure Mean [Right Arm] 123 119 Blood Pressure Position Pulse Oximetry 98 96 Oxygen Delivery Method Room Air Room Air Sepsis Recent Fever Within 48 Hours Sepsis New/Unexplained Change in Mental Status Sepsis Action Taken by Nursing CONSTITUTIONAL: Pleasant, mildly uncomfortable 68-year-old male who is awake and alert and in no acute distress laying on the gurney. EYES: Pupils equal, round, reactive to light and accommodation. EOMs intact without nystagmus. Sclera are anicteric. CARDIOVASCULAR: Regular rate and rhythm, no murmur appreciated. Peripheral pulses easy to palpable. RESPIRATORY: Breath sounds equal and clear to auscultation. GI: Bowel sounds are present. Abdomen is soft, mildly obese, nondistended, tender to percussion and palpation in the right upper quadrant. Equivocal Cortez sign. MUSCULOSKELETAL: Full range of motion of extremities x 4 with good strength. No cyanosis, edema, joint tenderness or swelling. No deformity. INTEGUMENTARY: No lesions or rash, normal skin turgor. Course Course The patient was seen and assessed as above. External medical records were reviewed. He returns to the emergency department for ongoing right upper quadrant abdominal pain. He was here a few days ago with the same complaint and noted to have gallstones and sludge, laboratory studies were unremarkable. IV lock was initiated, he was hydrated with normal saline solution and medicated with morphine and Zofran IV. Repeat laboratory studies including CBC with differential, CMP, lipase and urinalysis were ordered. Repeat right upper quadrant ultrasound was performed. Diagnostics, as interpreted by me: Laboratory studies: Marked leukocytosis now, white count 14,600 with left shift. No anemia. No thrombocytopenia. INR is 1.1. Sodium 134, remainder of electrolytes and renal functions are normal. Total bilirubin elevated at 1.6, delta 1.0 in 24 hours. AST and ALT are normal, alk phos now 112. Lipase is not elevated. Imaging studies: Gallbladder ultrasound notes gallbladder distention without gallbladder wall thickening. Sludge noted. Previously visualized cystic duct calculus no longer noted on ultrasound. Findings concerning for acute cholecystitis. ED workup discussed with attending physician, Dr. Aviles. After review of the information above and other included data, I feel the patient requires further inpatient care. Discussed patient with general surgery, Vesna Daniel PA-C with Dr. Solis. She feels reasonable to admit to medicine for MRCP, hold Eliquis, start IV antibiotics (Zosyn given in the ED), and recheck labs in AM, with plan for OR Friday or Friday. Please refer to surgical consult for further information. All laboratory and diagnostic imaging studies were discussed with the patient and his spouse at length. Consultation was placed with and patient reviewed with the [facility]ist service, please refer to their admission H&P and orders for further information. Differential diagnosis: GERD, gastritis, esophagitis, peptic ulcer disease, acute pancreatitis, biliary colic, acute cholecystitis, ascending cholangitis, choledocholithiasis, bowel obstruction, perforation, abscess, mass or malignancy, among others. Administered Medications Lactated Ringer's (Lr) 1,000 mls @ 125 mls/hr IV .Q8H SANTOS Stop: 10/07/23 17:29 Last Admin: 10/06/23 17:34 Dose: 125 mls/hr Documented By: JULIO CÉSAR Discontinued Medications Sodium Chloride (Nss) 1,000 mls @ 999 mls/hr IV .Q1H1M SANTOS Stop: 10/06/23 12:42 Last Infusion: 10/06/23 15:18 Dose: Infused Documented By: Admin: 10/06/23 12:21 Dose: 999 mls/hr Documented By: SYDNEY Piperacillin Sod/Tazobactam Sod (Zosyn) 4.5 gm in 100 mls @ 200 mls/hr IV NOW ONE Stop: 10/06/23 15:12 Last Infusion: 10/06/23 15:41 Dose: Infused Documented By: Admin: 10/06/23 15:03 Dose: 200 mls/hr Documented By: SYDNEY Morphine Sulfate (Morphine Sulfate 4 Mg/Ml 1 Ml Carp\\Vial) 4 mg IV NOW STA Stop: 10/06/23 11:43 Last Admin: 10/06/23 12:21 Dose: 4 mg Documented By: SYDNEY Morphine Sulfate (Morphine Sulfate 4 Mg/Ml 1 Ml Carp\\Vial) Confirm Administered Dose 4 mg .ROUTE .STK-MED ONE Stop: 10/06/23 16:42 Last Admin: 10/06/23 16:42 Dose: 4 mg Documented By: THANIA Morphine Sulfate (Morphine Sulfate 4 Mg/Ml 1 Ml Carp\\Vial) 4 mg IV NOW STA Stop: 10/06/23 16:48 Last Admin: 10/06/23 16:48 Dose: Not Given Documented By: THANIA Ondansetron HCl (Ondansetron Inj 2 Mg/Ml 2 Ml Vial) 4 mg IV NOW STA Stop: 10/06/23 11:43 Last Admin: 10/06/23 12:21 Dose: 4 mg Documented By: SYDNEY Medical Decision Making Differential Diagnosis See ED Course. Medical Records Attestation: I reviewed the patient's medical records. Home Medications Current Medication List: was personally reviewed by me Laboratory Data Attestation: I reviewed the patient's lab results. 10/06/23 12:10 10/06/23 12:10 Lab Results 10/06/23 Range/Units 12:10 WBC 14.26 H (4.8-10.8) K/ul RBC 5.81 (4.70-6.10) M/uL Hgb 16.8 (14.0-18.0) g/dl Hct 46.8 (42.0-52.0) % MCV 80.6 (80.0-100.0) fL MCH 28.9 (25.0-34.0) pg MCHC 35.9 (32.0-36.0) g/dL RDW Std Deviation 34.2 L (36.4-46.3) fL RDW Coeff of Vito 11.9 (11.5-14.5) % Plt Count 190 (130-400) K/uL MPV 9.0 L (9.4-12.4) fL Immature Gran % (Auto) 0.9 % Neut % (Auto) 85.3 % Lymph % (Auto) 3.4 % [place] % (Auto) 10.2 % Eos % (Auto) 0.0 % Baso % (Auto) 0.2 % Neut # (Auto) 12.16 H (1.40-6.50) K/uL Lymph # (Auto) 0.49 L (1.20-3.40) K/uL [place] # (Auto) 1.45 H (0.11-0.59) K/uL Eos # (Auto) 0.00 (0.00-0.50) K/uL Baso # (Auto) 0.03 (0.00-0.20) K/uL Immature Gran # (Auto) 0.13 (0.01-0.20) K/uL PT 11.7 (9.0-12.0) Seconds INR 1.1 (0.9-1.1) APTT 37 H (21-31) Seconds PTT Ratio 1.4 Sodium 134 L (136-145) mmol/L Potassium 4.0 (3.5-5.1) mmol/L Chloride 99 (98-107) mmol/L Carbon Dioxide 27 (21-32) mmol/L Anion Gap 8 (3-11) BUN 13 (6-23) mg/dl Creatinine 0.96 (0.6-1.4) mg/dl Est Cr Clr Drug Dosing 80.6 ml/min Est GFR ( Amer) 95.1 ml/min Est GFR (Non-Af Amer) 82.0 ml/min BUN/Creatinine Ratio 13.5 (10-20) Glucose 130 H (70-99(Fasting)) mg/dl Calcium 8.9 (8.6-10.3) mg/dl Total Bilirubin 1.6 H D (0.2-1.0) mg/dl AST 14 (13-39) U/L ALT 17 (7-52) U/L Alkaline Phosphatase 112 H (34-104) U/L Total Protein 7.4 (6.0-8.3) gm/dl Albumin 4.2 (3.4-5.0) gm/dl Globulin 3.2 (2.5-4.0) gm/dl Albumin/Globulin Ratio 1.3 (0.9-2) Lipase 6 L (11-82) U/L Imaging Data Attestation: I personally reviewed and interpreted this imaging study as follows: Radiologist's Impression: Gallbladder Ultrasound 10/06/23 11:29 US gallbladder CLINICAL HISTORY: CONTINUED RUQ PAIN COMPARISON STUDY: Right upper quadrant ultrasound and CT of the abdomen and pelvis October 04, 2023. FINDINGS: Hepatic echogenicity is increased. A few hypoechoic foci within the liver measuring up to 2 cm favor areas of fatty sparing. There is no biliary ductal dilatation. The gallbladder is mildly distended. Sonographic Cortez sign was difficult to assess for given pain medication administration. No gallbladder wall thickening is present. The 5 mm calculus within the cystic duct on CT of October 04, 2023 is not visualized by sonography. There is a small amount sludge within the gallbladder. Pancreas is unremarkable. There is no right hydronephrosis. IMPRESSION: 1. Mild gallbladder distention. Small amount of sludge within gallbladder. No gallbladder wall thickening. 5 mm cystic duct calculus on CT of October 04, 2023 not visualized by sonography. The findings are equivocal for acute cholecystitis. A nuclear medicine hepatobiliary scan could be obtained. 2. No biliary ductal dilatation. 3. Hepatic steatosis. ACT 112: Negative or not required by law. Electronically signed by: Mickey Drummond M.D. 10/06/2023 1:31 PM Orbit X-Ray 10/06/23 17:24 XR orbits for MRI CLINICAL HISTORY: Screening for foreign body for MRI TECHNIQUE: AP and lateral views of the orbits were submitted for interpretation. Comparison: None available at the time of this dictation. FINDINGS/IMPRESSION: There are no radiopaque metallic foreign bodies. The osseous structures are unremarkable. Patient is cleared for MRI. ACT 112: Negative or not required by law. Electronically signed by: Perico Cobb M.D. 10/06/2023 6:10 PM MDM Narrative See ED Course. Impression & Plan Acute cholecystitis Discharge Plan Visit Data Chief Complaint: Abdominal Pain Stated Complaint: GALLBLADDER HURTING ED Provider: Kaleb Aviles ED Midlevel Provider: Malia Posadas Discharge Problem: Acute cholecystitis Patient Disposition: Being Evaluated by Hospitalist Forms Stand Alone Forms: My [facility] [employer] Prescriptions Prescriptions: No Action metoprolol tartrate 50 mg tablet 75 mg PO BID Qty: 270 3RF Eliquis 5 mg tablet 5 mg PO BID Qty: 180 3RF levothyroxine 50 mcg tablet 50 mcg PO DAILY Qty: 30 2RF betamethasone dipropionate 0.05 % ointment 1 applic topical BID PRN (Reason: skin irritation) Qty: 45 0RF flecainide 100 mg tablet 100 mg PO Q12H Qty: 180 3RF Multivitamin 50 Plus Tablet 1 tab PO QAM acetaminophen [Tylenol Extra Strength] 500 mg Tablet 1,000 mg PO DIRECTED PRN (Reason: Pain) Rx Instructions: PER PT "TOOK 2 TABS ABOUT 1930, THEN ABOUT 1/2 HR LATER TOOK 1 MORE TAB". Referrals Referrals: Pro,Billy Riddle MD [Primary Care Provider] -
[2023-10-06] MEDS: MoRPHine SULFATE 4 MG/ML 1 ML CARP\\VIAL IV STA ×2 (12:21→16:48)
[2023-10-06] MEDS: ONDANSETRON INJ 2 MG/ML 2 ML VIAL IV STA (12:21)
[2023-10-06] MEDS: SODIUM CHLORIDE 0.9% 1,000 ML IV SCH (12:21)
[2023-10-06 12:52] LABS: Basophils # (auto) 0.03 K/uL (0.00-0.20); Basophils % (auto) 0.2 %; Hematocrit (blood only) 46.8 % (42.0-52.0); Hemoglobin 16.8 g/dl (14.0-18.0); Immature Granulocytes # (auto) 0.13 K/uL (0.01-0.20); Immature Granulocytes % (auto) 0.9 %; Lymphocytes # (auto) 0.49 K/uL (1.20-3.40); Lymphocytes % (auto) 3.4 %; Mean Corpuscular Hemoglobin 28.9 pg (25.0-34.0); Mean Corpuscular Hgb Conc 35.9 g/dL (32.0-36.0); Mean Corpuscular Volume 80.6 fL (80.0-100.0); Monocytes # (auto) 1.45 K/uL (0.11-0.59); Monocytes % (auto) 10.2 %; Neutrophils # (auto) 12.16 K/uL (1.40-6.50); Neutrophils % (auto) 85.3 %; Platelet Count 190 K/uL (130-400); RDW Coefficient of Variation 11.9 % (11.5-14.5); RDW Standard Deviation 34.2 fL (36.4-46.3); Red Blood Count 5.81 M/uL (4.70-6.10); White Blood Count 14.26 K/ul (4.8-10.8)
[2023-10-06 13:01] LABS: INR 1.1 (0.9-1.1); Prothrombin Time 11.7 Seconds (9.0-12.0)
[2023-10-06 13:27] LABS: Albumin Level 4.2 gm/dl (3.4-5.0); Bilirubin,Total 1.6 mg/dl (0.2-1.0); Calcium 8.9 mg/dl (8.6-10.3)
[2023-10-06 13:31] LABS: Albumin Globulin Ratio 1.3 (0.9-2); BUN Creatinine Ratio 13.5 (10-20); Creatinine Clr Calc Pharmacy 80.6 ml/min; Est GFR (African American) 95.1 ml/min; Globulin 3.2 gm/dl (2.5-4.0); Total Protein 7.4 gm/dl (6.0-8.3)
--- NOTE | 2023-10-06 13:33 | Ultrasound Report ---
US gallbladder CLINICAL HISTORY: CONTINUED RUQ PAIN COMPARISON STUDY: Right upper quadrant ultrasound and CT of the abdomen and pelvis October 04, 2023. FINDINGS: Hepatic echogenicity is increased. A few hypoechoic foci within the liver measuring up to 2 cm favor areas of fatty sparing. There is no biliary ductal dilatation. The gallbladder is mildly di stended. Sonographic Cortez sign was difficult to assess for given pain medication administration. No gallbladder wall thickening is present. The 5 mm calculus within the cystic duct on CT of October 03 is not visualized by sonography. There is a small amount sludge within the gallbladder. Pancreas is unremarkable. There is no right hydronephrosis. IMPRESSION: 1. Mild gallbladder distention. Small amount of sludge within gallbladder. No gallbladder wall thicke carrillo. 5 mm cystic duct calculus on CT of October 04, 2023 not visualized by sonography. The findings are equivocal for acute cholecystitis. A nuclear medicine hepatobiliary scan could be obtained. 2. No biliary ductal dilatation. 3. Hepatic steatosis. ACT 112: Negative or not required by law. Electronically signed by: Mickey Drummond M.D. 10/06/2023 1:31 PM
[2023-10-06] MEDS: PIPERACILLIN/TAZOBACTAM 4.5 GM/100 ML BAG IV ONE (15:03)
--- NOTE | 2023-10-06 16:05 | Surgery Consultation ---
Date of Consultation October 06, 2023 Assessment & Plan (1) Acute cholecystitis: (2) Abdominal pain, acute: (3) Cholelithiasis: Plan 68 yo male with ongoing RUQ postprandial abdominal pain and biliary colic for 6 months initially presented to ED on Friday evening with normal labs, ct scan showing 5 mm cystic duct stone, however no signs of acute cholecystitis or biliary obstruction and was discharged home now presents back to ED with persistent pain, nausea and leukocytosis of 15k with t. bili of 1.6 and elevated alk phos with normal LFTS. Ultrasound does not show cystic duct stone but CBD not dilated. Plan: Given elevated t. bili and alk phos will need further eval with MRCP vs ERCP to rule out Choledocholithiasis given 5 mm stone seen on CT scan 10/04/2023 and not seen on today's ultrasound prior to any surgical intervention with cholecystectomy. Given persistent pain and leukocytosis would recommend hospitalist admit, MRCP, pain management, hold Eliquis, repeat am labs , and will determine timing of cholecystectomy. Patient last dose of Eliquis was evening of 10/04. Discussed with Dr. Solis. History of Present Illness Reason for Consultation: Acute calculous cholecystitis Requesting Physician: Kamryn Posadas PA-C History of Present Illness Sebastián is a 68 yo male with history of afib on Eliquis, hypertension, hypothyroidism who presented to ED with increased abdominal pain in setting of biliary colic for 6 months and ER evaluation on Friday with CT scan of abdomen and pelvis showing distended gallbladder with 5 mm cystic duct stone, normal labs, and ultrasound. He felt okay and was discharged from emergency room. Pain not improving and has been persistent and presented back to ED. He had repeat ultrasound which showed distended gallbladder with sludge and no wall thickening or pericholecystic fluid however the prior 5 mm cystic duct stone seen on ct scan was not visualized by ultrasound. He has a leukocytosis of 15k and t. bili up to 1.6 with elevated alk phos. LFTs wnl. Lipase wnl. Nauseated but no vomiting. Currently rating pain about a 7/10, last dose of Morphine was around noon. Pain all located in the right upper abdomen, no radiation. Mild nausea, no vomiting. No changes in bowel habits, has been constipated last few months. No blood in stools. No difficulty urinating. Allergies Allergy/AdvReac Type Severity Reaction Status Date / Time No Known Allergies Allergy Verified 10/06/23 14:14 Home Medications Medication Instructions Recorded Confirmed Type daofxggaoyaw-qeneklev-ksijex 1 tab PO QAM 03/05/18 10/06/23 History tablet (Multivitamin 50 Plus tablet) betamethasone dipropionate 0.05 % 1 applic topical BID PRN skin 12/31/22 10/06/23 Rx topical ointment irritation #45 grams flecainide 100 mg tablet 100 mg PO Q12H #180 tabs 04/29/23 10/06/23 Rx metoprolol tartrate 50 mg tablet 75 mg (1.5 x 50 mg) PO BID #270 06/13/23 10/06/23 Rx tabs apixaban 5 mg tablet (Eliquis) 5 mg PO BID #180 tabs 06/29/23 10/06/23 Rx levothyroxine 50 mcg tablet 50 mcg PO DAILY #30 tabs 08/22/23 10/06/23 Rx acetaminophen 500 mg tablet 1,000 mg PO DIRECTED PRN Pain 10/04/23 10/06/23 History (Tylenol Extra Strength) Patient History Medical History Hypothyroidism Anticoagulant long-term use Atrial fibrillation medication controlled > follows Dr. Marks Osteoarthritis Migraine Hypertension Surgical History Status post total left knee replacement Colonic polyp with removal History of colonoscopy History of tooth extraction History of cataract surgery RT/LEFT Family History Grandfather (Paternal) Myocardial infarction Father Prostate cancer Diabetes Denies family history of Ovarian cancer Breast cancer Colorectal cancer Social History Smoking Status: Never smoker Second Hand Exposure: No; Do You Dip or Chew Tobacco: No; Hx Alcohol Use: No Hx Substance Use: No Preferred Language: Gambian Communication Ability: Effective Manager Customer Service Required: No Beliefs That Will Affect Care: None marital status: Current Living Situation: Spouse current occupational status: employed current occupation: Crop farming Feels Safe at Home: Yes Childhood Exposure to Second-Hand Smoke: No Dental Care, Regularly: Yes Physical Activity Frequency: Daily Seatbelt Use: always Sunscreen Use: No Assistive Devices: Glasses and Walker Review of Systems Review of Systems: All systems reviewed & are unremarkable except as noted in HPI & below Physical Exam Constitutional: WD/WN, vitals as above cooperative; no acute distress, not ill appearing and not diaphoretic Respiratory: normal respiratory effort, lungs clear to auscultation Cardiovascular: RRR, no murmur, no edema Gastrointestinal (Abdomen): Inspection/Auscultation: abdomen normal to inspection; abdomen not distended Percussion/Palpation: + abdomen tender (RUQ, Positive [place] sign) and abdomen soft; no guarding, abdomen not rigid and abdomen not firm Skin: no rashes, warm and dry no jaundice Psychiatric: A+Ox3, euthymic affect Results & Data Vital Signs (Past 12 Hours) Vital Signs Temp Pulse Pulse Resp BP BP Pulse Ox 10/06/23 15:16 63 20 122/91 97 10/06/23 15:04 70 10/06/23 11:22 36.5 C 70 18 163/82 H 98 O2 Del Method 10/06/23 15:16 Room Air 10/06/23 15:04 10/06/23 11:22 Room Air Laboratory Results 10/06/23 Range/Units 12:10 WBC 14.26 H (4.8-10.8) K/ul RBC 5.81 (4.70-6.10) M/uL Hgb 16.8 (14.0-18.0) g/dl Hct 46.8 (42.0-52.0) % MCV 80.6 (80.0-100.0) fL MCH 28.9 (25.0-34.0) pg MCHC 35.9 (32.0-36.0) g/dL RDW Std Deviation 34.2 L (36.4-46.3) fL RDW Coeff of Vito 11.9 (11.5-14.5) % Plt Count 190 (130-400) K/uL MPV 9.0 L (9.4-12.4) fL Immature Gran % (Auto) 0.9 % Neut % (Auto) 85.3 % Lymph % (Auto) 3.4 % [place] % (Auto) 10.2 % Eos % (Auto) 0.0 % Baso % (Auto) 0.2 % Neut # (Auto) 12.16 H (1.40-6.50) K/uL Lymph # (Auto) 0.49 L (1.20-3.40) K/uL [place] # (Auto) 1.45 H (0.11-0.59) K/uL Eos # (Auto) 0.00 (0.00-0.50) K/uL Baso # (Auto) 0.03 (0.00-0.20) K/uL Immature Gran # (Auto) 0.13 (0.01-0.20) K/uL PT 11.7 (9.0-12.0) Seconds INR 1.1 (0.9-1.1) Sodium 134 L (136-145) mmol/L Potassium 4.0 (3.5-5.1) mmol/L Chloride 99 (98-107) mmol/L Carbon Dioxide 27 (21-32) mmol/L Anion Gap 8 (3-11) BUN 13 (6-23) mg/dl Creatinine 0.96 (0.6-1.4) mg/dl Est Cr Clr Drug Dosing 80.6 ml/min Est GFR ( Amer) 95.1 ml/min Est GFR (Non-Af Amer) 82.0 ml/min BUN/Creatinine Ratio 13.5 (10-20) Glucose 130 H (70-99(Fasting)) mg/dl Calcium 8.9 (8.6-10.3) mg/dl Total Bilirubin 1.6 H D (0.2-1.0) mg/dl AST 14 (13-39) U/L ALT 17 (7-52) U/L Alkaline Phosphatase 112 H (34-104) U/L Total Protein 7.4 (6.0-8.3) gm/dl Albumin 4.2 (3.4-5.0) gm/dl Globulin 3.2 (2.5-4.0) gm/dl Albumin/Globulin Ratio 1.3 (0.9-2) Lipase 6 L (11-82) U/L Diagnostic Findings US gallbladder CLINICAL HISTORY: CONTINUED RUQ PAIN COMPARISON STUDY: Right upper quadrant ultrasound and CT of the abdomen and pelvis October 04, 2023. FINDINGS: Hepatic echogenicity is increased. A few hypoechoic foci within the liver measuring up to 2 cm favor areas of fatty sparing. There is no biliary ductal dilatation. The gallbladder is mildly distended. Sonographic Cortez sign was difficult to assess for given pain medication administration. No gallbladder wall thickening is present. The 5 mm calculus within the cystic duct on CT of October 04, 2023 is not visualized by sonography. There is a small amount sludge within the gallbladder. Pancreas is unremarkable. There is no right hydronephrosis. IMPRESSION: 1. Mild gallbladder distention. Small amount of sludge within gallbladder. No gallbladder wall thickening. 5 mm cystic duct calculus on CT of October 04, 2023 not visualized by sonography. The findings are equivocal for acute cholecystitis. A nuclear medicine hepatobiliary scan could be obtained. 2. No biliary ductal dilatation. 3. Hepatic steatosis. CT Abdomen and Pelvis With Intravenous Contrast CLINICAL HISTORY: Reason for exam: mid abd pain. TECHNIQUE: Axial computed tomography images of the abdomen and pelvis with intravenous contrast. CTDI is knee 4.56 mGy and DLP is 1272.15 mGy-cm. Automated exposure control was utilized for the study. A dose lowering technique was utilized adhering to the principles of ALARA. CONTRAST: Patient received 94 cc's of optiray 320 of IV contrast COMPARISON: None. FINDINGS: Lung bases: Minimal posterior dependent atelectasis. The remainder of the lung bases are clear. Heart: Unremarkable. No cardiomegaly. No significant pericardial effusion. Normal cardiac size with coronary artery calcifications. ABDOMEN: Liver: Unremarkable. No mass. Gallbladder and bile ducts: Slightly over distended gallbladder. There is a small stone in the gallbladder neck junction with the cystic duct measuring 5 mm, image 28, series 2. Pancreas: Unremarkable. No mass. No ductal dilation. Spleen: Unremarkable. No splenomegaly. Adrenals: Unremarkable. No mass. Kidneys and ureters: Unremarkable. No solid mass. No hydronephrosis. Stomach and bowel: Unremarkable. No obstruction. No mucosal thickening. PELVIS: Appendix: Normal appendix. Bladder: Unremarkable. No mass. Reproductive: Unremarkable as visualized. ABDOMEN and PELVIS: Intraperitoneal space: Unremarkable. No free air. No significant fluid collection. Bones/joints: Multilevel degenerative disease of the spine with no spondylolisthesis or pars defect. No acute fracture. No dislocation. Soft tissues: Small left-sided fat-containing inguinal hernia. Vasculature: Atherosclerotic disease of aorta with no aneurysm or dissection. Lymph nodes: Unremarkable. No enlarged lymph nodes. IMPRESSION: 1. 5 mm stone at the gallbladder neck junction with the cystic duct as described. Otherwise unremarkable gallbladder and biliary system . 2. No acute appendicitis or bowel obstruction. Electronically signed by: Milagros Guthrie MD I personally reviewed CT scan images from 10/04/2023 and agree with above findings. (3) Cholelithiasis Biliary obstruction: without biliary obstruction Cholelithiasis location: other site Qualified Code(s): K80.80 - Other cholelithiasis without obstruction
[2023-10-06] MEDS: MoRPHine SULFATE 4 MG/ML 1 ML CARP\\VIAL ONE (16:42)
--- NOTE | 2023-10-06 16:44 | History & Physical Report ---
Date of Service October 06, 2023 Assessment & Plan (1) Acute cholecystitis: Plan: RUQ x 6 months, with acute exacerbations on 10/03 and 10/05 A/P CT on 10/03 revealed 5 mm gallbladder stone Gallbladder U/S on 10/05 revealed stone might have passed Mildly elevated bilirubin at 1.6 on arrival MRCP ordered, pending XR orbits ordered, pending to assess for FBs Appreciate general surgery consult Hold Eliquis; last taken the evening of 10/04; patient would require 72h off Eliquis prior to cholecystectomy Multimodal pain control: Acetaminophen as needed for pain 13 Dilaudid 0.5 mg IV q4h as needed for pain 46 Dilaudid 1.0 mg IV q4h as needed for pain 7-10 Strict n.p.o. until patient has MRCP, then can continue p.o. medications IVF maintenance with LR at 125mL/hr x 3L Zosyn 4.5 g IV q8h for now A.m. CBC, CMP, TSH (2) Atrial fibrillation: Plan: Paroxysmal; rate controlled in the ED, sinus rhythm Hold Eliquis Low risk based on [id number]: 2 Hx of mild HTN; No PMH of CHF, stroke, NH, PVD, or diabetes Will defer IV heparin bridge for now Continue metoprolol, flecainide (3) Hypothyroidism: Plan: Continue levothyroxine Plan Disposition: Admit to [facility] Full code Strict n.p.o. for now VTE PPx: Hold Eliquis; SCDs for now History of Present Illness Chief Complaint: RUQ abdominal pain Primary Care Provider: Billy Luevano MD Sebastián is a pleasant 68-year-old male with PMH of hypothyroidism. He presented on 10/05 for RUQ pain x 6 months, with an acute exacerbation over the past couple days. Recent MI ED visit on 10/03 for increased pain, and CT determined that he did have a 5 mm stone. Patient reports that the RUQ pain has been ongoing over the past couple months, and would normally ease up on its own; occurred at a frequency of once per month. This time however, it did not go away. He endorses RUQ pain that is 5/10 at present after receiving pain medicine in the ED; 10/10 at worst. No radiation to the back or down the stomach. He describes it as a dull, constant, aching pain. It is worse after large meals; patient does report he had ice cream Friday night. He took 3 Tylenol this morning, which helped a little bit. Pain is slightly alleviated when he lies flat on his back. No prior history of abdominal surgeries. His only recent surgery was knee surgery 3 years ago; he denies history of metal rods or implants. No recent change in diet. Last BM was this morning, after he took a stool softener last night. He reports that he took all of his regular morning medications today except for Eliquis (which she last took the evening of 10/04). Only recent change in medications was that he increased his levothyroxine recently. Patient takes Eliquis for atrial fibrillation. He denies smoking, tobacco use, and recent alcohol use. He is hypertensive at 189/90 at time of admission; vitals otherwise stable. ED course: Zosyn 4.5 g IV Zofran 4 mg IV Morphine sulfate 4 mg IV x 2 NSS 1000 mL IV ROS: Patient endorses RUQ pain and soft stool. Patient denies fever, chills, night-sweats, chest pain, SOB, N/V/D, changes in urinary/bowel habits, burning with urination, blood in urine/stool, melena, or dysuria. Allergies Allergy/AdvReac Type Severity Reaction Status Date / Time No Known Allergies Allergy Verified 10/06/23 14:14 Home Medications Medication Instructions Recorded Confirmed Type xmxoshzndfcu-mgutytde-rlqcxj 1 tab PO QAM 03/05/18 10/06/23 History tablet (Multivitamin 50 Plus tablet) betamethasone dipropionate 0.05 % 1 applic topical BID PRN skin 12/31/22 10/06/23 Rx topical ointment irritation #45 grams flecainide 100 mg tablet 100 mg PO Q12H #180 tabs 04/29/23 10/06/23 Rx metoprolol tartrate 50 mg tablet 75 mg (1.5 x 50 mg) PO BID #270 06/13/23 10/06/23 Rx tabs apixaban 5 mg tablet (Eliquis) 5 mg PO BID #180 tabs 06/29/23 10/06/23 Rx levothyroxine 50 mcg tablet 50 mcg PO DAILY #30 tabs 08/22/23 10/06/23 Rx acetaminophen 500 mg tablet 1,000 mg PO DIRECTED PRN Pain 10/04/23 10/06/23 History (Tylenol Extra Strength) Past Med/Surg History Problem List (Updated 10/06/23 @ 17:22 by Don Vega PA-C) Atrial fibrillation medication controlled > follows Dr. Marks Hypothyroidism Acute cholecystitis (Acute) Abdominal pain, acute (Acute) Cholelithiasis (Acute) Right thyroid nodule Medical History Hypothyroidism Anticoagulant long-term use Atrial fibrillation medication controlled > follows Dr. Marks Osteoarthritis Migraine Hypertension Surgical History Status post total left knee replacement Colonic polyp with removal History of colonoscopy History of tooth extraction History of cataract surgery RT/LEFT Family History Grandfather (Paternal) Myocardial infarction Father Prostate cancer Diabetes Denies family history of Ovarian cancer Breast cancer Colorectal cancer Social History Smoking Status: Never smoker Second Hand Exposure: No; Do You Dip or Chew Tobacco: No; Hx Alcohol Use: No Hx Substance Use: No Preferred Language: Persian Communication Ability: Effective Picture Painter Required: No Beliefs That Will Affect Care: None marital status: Current Living Situation: Spouse and Family Current Living Situation Comment: and daughter current occupational status: employed current occupation: Crop farming Other Information That Helps Us Care for You: No Feels Safe at Home: Yes Safety Concerns: Feels Safe At This Time Childhood Exposure to Second-Hand Smoke: No Dental Care, Regularly: Yes Physical Activity Frequency: Daily Seatbelt Use: always Sunscreen Use: No Assistive Devices: Glasses and Walker Review of Systems Review of Systems: See HPI above Physical Exam Physical Exam: General: no acute distress; pleasant affect; non-toxic appearing; well- nourished; cooperative; SpO2 98% on RA HEENT: normocephalic, atraumatic; no scleral icterus; PERRLA; moist mucus membrane; vision and hearing grossly intact Neck: supple; no lymphadenopathy; trachea midline Skin: warm, dry without signs of tenting; no cyanosis; no rashes, bruising, lesions, or erythema noted CV: chest wall NTP; RRR; S1/S2 normal; no murmurs/rubs/gallops; pulses intact and symmetric at radial, DP, and PT Lungs: no acute respiratory distress; symmetrical chest wall expansion; clear breath sounds across all lung peterson w/o adventitious sounds; no wheezing ABD: Soft; RUQ is tender to palpation; positive Cortez sign; BS present; no rebound/guarding; no distention; no rashes or bruising on the abdomen or flanks MSK: no tics or fasciculations; no edema noted in the LEs b/l, nonerythematous Neuro: A&Ox3; normal mood and affect; fluent speech; no focal deficits; sensation grossly intact in the LEs b/l Results & Data Results & Data Vital Signs (Past 12 Hours) Vital Signs Temp Pulse Pulse Resp BP BP Pulse Ox 10/06/23 15:16 63 20 122/91 97 10/06/23 15:04 70 10/06/23 11:22 36.5 C 70 18 163/82 H 98 O2 Del Method 10/06/23 15:16 Room Air 10/06/23 15:04 10/06/23 11:22 Room Air Laboratory Results Abnormal lab results 10/06/23 Range/Units 12:10 WBC 14.26 H (4.8-10.8) K/ul RDW Std Deviation 34.2 L (36.4-46.3) fL MPV 9.0 L (9.4-12.4) fL Neut # (Auto) 12.16 H (1.40-6.50) K/uL Lymph # (Auto) 0.49 L (1.20-3.40) K/uL [place] # (Auto) 1.45 H (0.11-0.59) K/uL Sodium 134 L (136-145) mmol/L Glucose 130 H (70-99(Fasting)) mg/dl Total Bilirubin 1.6 H D (0.2-1.0) mg/dl Alkaline Phosphatase 112 H (34-104) U/L Lipase 6 L (11-82) U/L Diagnostic Findings Gallbladder Ultrasound 10/06/23 11:29 US gallbladder CLINICAL HISTORY: CONTINUED RUQ PAIN COMPARISON STUDY: Right upper quadrant ultrasound and CT of the abdomen and pelvis October 04, 2023. FINDINGS: Hepatic echogenicity is increased. A few hypoechoic foci within the liver measuring up to 2 cm favor areas of fatty sparing. There is no biliary ductal dilatation. The gallbladder is mildly distended. Sonographic Cortez sign was difficult to assess for given pain medication administration. No gallbladder wall thickening is present. The 5 mm calculus within the cystic duct on CT of October 04, 2023 is not visualized by sonography. There is a small amount sludge within the gallbladder. Pancreas is unremarkable. There is no right hydronephrosis. IMPRESSION: 1. Mild gallbladder distention. Small amount of sludge within gallbladder. No gallbladder wall thickening. 5 mm cystic duct calculus on CT of October 04, 2023 not visualized by sonography. The findings are equivocal for acute cholecystitis. A nuclear medicine hepatobiliary scan could be obtained. 2. No biliary ductal dilatation. 3. Hepatic steatosis. ACT 112: Negative or not required by law. Electronically signed by: Mickey Drummond M.D. 10/06/2023 1:31 PM ECG Additional Comments: ECG on 10/03 revealed NSR at 65 bpm; QTc 436 Code Status & VTE Plan Code Status Full code VTE Prophylaxis Plan VTE Prophylaxis will be ordered: Yes Supervising Physician Co-Signing Physician Notes Patient was seen and examined in the emergency room, presents with recurrent right upper quadrant pain, suspect acute cholecystitis, he has elevated total bilirubin, elevated white count, he was evaluated by surgery and recommended MRCP, if it is negative patient will have cholecystectomy, unfortunately he is on Eliquis, will hold Eliquis, patient is currently in sinus rhythm, might consider consulting a investigation division captain for further recommendation, continue his flecainide and metoprolol IV fluids N.p.o. Pain control IV antibiotics Agree with above assessment and plan PG Care Time/CCT Total # of Minutes Spent Total Time Spent with Patient: Total time spent is greater than 50% in coordination of care (as documented) at patient's floor/unit and/or counseling patient: Coding [place] [address] INT INP/OBS CARE 2/55MIN Patient Type Established Medical Decision Making Moderate Complexity Diagnoses Acute cholecystitis K81.0 Paroxysmal atrial fibrillation I48.0 Atrial fibrillation type: paroxysmal Hypothyroidism E03.9 (2) Atrial fibrillation Atrial fibrillation type: paroxysmal Qualified Code(s): I48.0 - Paroxysmal atrial fibrillation
[2023-10-06] MEDS: LACTATED RINGER'S 1,000 ML IV SCH (17:34)
--- NOTE | 2023-10-06 18:12 | XRay Report ---
XR orbits for MRI CLINICAL HISTORY: Screening for foreign body for MRI TECHNIQUE: AP and lateral views of the orbits were submitted for interpretation. Comparison: None available at the time of this dictation. FINDINGS/IMPRESSION: There are no radiopaque metallic foreign bodies. The osseous structures are unremarkable. Patient is cleared for MRI. ACT 112: Negative or not required by law. Electronically signed by: Perico Cobb M.D. 10/06/2023 6:10 PM
[2023-10-06 18:25] LABS: Partial Thromboplastin Ratio 1.4; Partial Thromboplastin Time 37 Seconds (21-31)
[2023-10-06] MEDS ORDERED: HYDROmorphone INJ 1 MG/ML SYRINGE IV PRN (19:43)
[2023-10-06] MEDS: LORazepam 0.5 MG in SYRINGE 0.25 ML IV ONE (20:30)
[2023-10-06] MEDS: FLECAINIDE ACETATE 100 MG TABLET PO SCH (22:47)
[2023-10-06] MEDS: METOPROLOL TARTRATE 25 MG TAB PO SCH (22:47)
[2023-10-06] MEDS: PIPERACILLIN/TAZOBACTAM 4.5 GM in DEXTROSE 5% MINI-B 100 ML IV SCH (22:47)
[2023-10-06] MEDS: ACETAMINOPHEN 325 MG TAB PO PRN (22:54)
[2023-10-07] MEDS: ONDANSETRON INJ 2 MG/ML 2 ML VIAL IV PRN (00:40)
[2023-10-07] MEDS: HYDROmorphone INJ 0.5 MG/0.5 ML SYR IV PRN (02:00)
--- NOTE | 2023-10-07 02:33 | Magnetic Resonance Report ---
Exam(s): MRI MRCP EXAM: MR Abdomen Without Intravenous Contrast, MRCP Protocol CLINICAL HISTORY: Acute jami. TECHNIQUE: Multiplanar magnetic resonance images of the abdomen without intravenous contrast using MRCP protocol. COMPARISON: CT abdomen and pelvis with contrast 10/04/2023; ultrasound gallbladder performed earlier the same day FINDINGS: Bile ducts: There is a broad cutoff of the cystic duct without clear communication with the common bile duct. The intrahepatic and extrahepatic biliary tree is normal in size. The common bile duct measures 5 mm proximally. No choledocholithiasis identified. Gallbladder: Gallbladder wall thickening now identified with pericholecystic fat stranding. Liver: Trace perihepatic fluid and minimal trace perisplenic fluid. No loculated collection. Pancreas: Unremarkable. No ductal dilation. Spleen: Minimal perisplenic fluid. The spleen is otherwise unremarkable. Adrenals: Unremarkable. No mass. Kidneys and ureters: Unremarkable. No hydronephrosis. Stomach and bowel: Unremarkable. No obstruction. IMPRESSION: 1. There is a broad cutoff of the cystic duct without clear communication with the common bile duct. This is presumably consistent with the previously noted stone in the cystic duct. 2. Gallbladder wall thickening now identified with pericholecystic fat stranding. Findings are suspicious for developing acute cholecystitis. Again, functional radionuclide imaging of the gallbladder may provide additional information, as clinically appropriate. 3. The intrahepatic and extrahepatic biliary tree is normal in size. The common bile duct measures 5 mm proximally. No choledocholithiasis identified. 4. Trace perihepatic fluid and minimal trace perisplenic fluid. No loculated collection. This is presumed reactive from the gallbladder process. Electronically signed by: Yomi Bates MD 10/07/23 02:32 AM
[2023-10-07] MEDS: LEVOTHYROXINE SODIUM 50 MCG TABLET PO SCH (05:54)
[2023-10-07 07:22] LABS: Basophils # (auto) 0.02 K/uL (0.00-0.20); Basophils % (auto) 0.1 %; Hematocrit (blood only) 42.8 % (42.0-52.0); Hemoglobin 15.5 g/dl (14.0-18.0); Immature Granulocytes # (auto) 0.25 K/uL (0.01-0.20); Immature Granulocytes % (auto) 1.8 %; Lymphocytes # (auto) 0.48 K/uL (1.20-3.40); Lymphocytes % (auto) 3.5 %; Mean Corpuscular Hemoglobin 28.8 pg (25.0-34.0); Mean Corpuscular Hgb Conc 36.2 g/dL (32.0-36.0); Mean Corpuscular Volume 79.4 fL (80.0-100.0); Mean Platelet Volume 8.8 fL (9.4-12.4); Monocytes # (auto) 1.33 K/uL (0.11-0.59); Monocytes % (auto) 9.6 %; Neutrophils # (auto) 11.72 K/uL (1.40-6.50); Platelet Count 128 K/uL (130-400); RDW Coefficient of Variation 11.9 % (11.5-14.5); RDW Standard Deviation 34.1 fL (36.4-46.3); Red Blood Count 5.39 M/uL (4.70-6.10)
[2023-10-07 08:51] LABS: Thyroid Stimulating Hormone 3.775 uIu/ml (0.300-4.500)
[2023-10-07 09:06] LABS: Albumin Level 3.5 gm/dl (3.4-5.0); Bilirubin,Total 1.4 mg/dl (0.2-1.0); Calcium 8.3 mg/dl (8.6-10.3); Potassium 4.1 mmol/L (3.5-5.1)
[2023-10-07 09:12] LABS: Albumin Globulin Ratio 1.2 (0.9-2); BUN Creatinine Ratio 13.5 (10-20); Est GFR (African American) 103.3 ml/min; Est GFR (Non-African American) 89.1 ml/min; Globulin 2.9 gm/dl (2.5-4.0); Total Protein 6.4 gm/dl (6.0-8.3)
--- NOTE | 2023-10-07 13:16 | Surgery Progress Note ---
Date of Service October 07, 2023 Assessment & Plan (1) Acute cholecystitis: (2) Abdominal pain, acute: (3) Cholelithiasis: Plan 68 yo male with ongoing RUQ postprandial abdominal pain and biliary colic for 6 months initially presented to ED on Satur evening with normal labs, ct scan showing 5 mm cystic duct stone, however no signs of acute cholecystitis or biliary obstruction and was discharged home now presents back to ED with persistent pain, nausea and leukocytosis of 15k with t. bili of 1.6 and elevated alk phos with normal LFTS. Ultrasound does not show cystic duct stone but CBD not dilated. 10/07/23 avss leukocytosis slightly improved but still elevated t. bili 1.4 (1.6) alk phos normalized lfts wnl MRCP with acute cholecystitis and stone in cystic duct, CBD nondilated, no choledocho Plan: Given MRCP findings, will proceed with lap jami tomorrow with Dr. Solis. Dr. Solis discussed procedure and risks and informed consent obtained. NPO after midnight Conitnue IV abx continue pain management Continue medical management Continue to hold Eliquis Admission and Anticipated Discharge Date Admission Date: October 06, 2023 Subjective feeling a little better pain controlled with pain medication, not as severe. mild nausea no vomiting Physical Exam Constitutional: WD/WN, vitals as above cooperative and comfortable; no acute distress and not ill appearing Respiratory: normal respiratory effort, lungs clear to auscultation Cardiovascular: RRR, no murmur, no edema Gastrointestinal (Abdomen): Inspection/Auscultation: abdomen normal to inspection; abdomen not distended Percussion/Palpation: + abdomen tender (RUQ on deep palpation) and abdomen soft; no guarding, abdomen not rigid and abdomen not firm Skin: no rashes, warm and dry no jaundice Psychiatric: A+Ox3, euthymic affect Results & Data Vital Signs (Past 12 Hours) Vital Signs Temp Pulse Resp BP Pulse Ox O2 Del Method 10/07/23 08:05 37.1 C 84 18 176/69 H 96 Room Air Laboratory Results 10/07/23 10/06/23 Range/Units 07:08 12:10 WBC 13.80 H (4.8-10.8) K/ul RBC 5.39 (4.70-6.10) M/uL Hgb 15.5 (14.0-18.0) g/dl Hct 42.8 (42.0-52.0) % MCV 79.4 L (80.0-100.0) fL MCH 28.8 (25.0-34.0) pg MCHC 36.2 H (32.0-36.0) g/dL RDW Std Deviation 34.1 L (36.4-46.3) fL RDW Coeff of Vito 11.9 (11.5-14.5) % Plt Count 128 L (130-400) K/uL MPV 8.8 L (9.4-12.4) fL Immature Gran % (Auto) 1.8 % Neut % (Auto) 85.0 % Lymph % (Auto) 3.5 % [place] % (Auto) 9.6 % Eos % (Auto) 0.0 % Baso % (Auto) 0.1 % Neut # (Auto) 11.72 H (1.40-6.50) K/uL Lymph # (Auto) 0.48 L (1.20-3.40) K/uL [place] # (Auto) 1.33 H (0.11-0.59) K/uL Eos # (Auto) 0.00 (0.00-0.50) K/uL Baso # (Auto) 0.02 (0.00-0.20) K/uL Immature Gran # (Auto) 0.25 H (0.01-0.20) K/uL APTT 37 H (21-31) Seconds PTT Ratio 1.4 Sodium 130 L 134 L (136-145) mmol/L Potassium 4.1 4.0 (3.5-5.1) mmol/L Chloride 98 99 (98-107) mmol/L Carbon Dioxide 24 27 (21-32) mmol/L Anion Gap 8 8 (3-11) BUN 12 13 (6-23) mg/dl Creatinine 0.89 0.96 (0.6-1.4) mg/dl Est Cr Clr Drug Dosing 87.0 80.6 ml/min Est GFR ( Amer) 103.3 95.1 ml/min Est GFR (Non-Af Amer) 89.1 82.0 ml/min BUN/Creatinine Ratio 13.5 13.5 (10-20) Glucose 146 H 130 H (70-99(Fasting)) mg/dl Calcium 8.3 L 8.9 (8.6-10.3) mg/dl Total Bilirubin 1.4 H 1.6 H D (0.2-1.0) mg/dl AST 14 14 (13-39) U/L ALT 16 17 (7-52) U/L Alkaline Phosphatase 97 112 H (34-104) U/L Total Protein 6.4 7.4 (6.0-8.3) gm/dl Albumin 3.5 4.2 (3.4-5.0) gm/dl Globulin 2.9 3.2 (2.5-4.0) gm/dl Albumin/Globulin Ratio 1.2 1.3 (0.9-2) Lipase 6 L (11-82) U/L TSH 3.775 (0.300-4.500) uIu/ml Diagnostic Findings Exam(s): MRI MRCP EXAM: MR Abdomen Without Intravenous Contrast, MRCP Protocol CLINICAL HISTORY: Acute jami. TECHNIQUE: Multiplanar magnetic resonance images of the abdomen without intravenous contrast using MRCP protocol. COMPARISON: CT abdomen and pelvis with contrast 10/04/2023; ultrasound gallbladder performed earlier the same day FINDINGS: Bile ducts: There is a broad cutoff of the cystic duct without clear communication with the common bile duct. The intrahepatic and extrahepatic biliary tree is normal in size. The common bile duct measures 5 mm proximally. No choledocholithiasis identified. Gallbladder: Gallbladder wall thickening now identified with pericholecystic fat stranding. Liver: Trace perihepatic fluid and minimal trace perisplenic fluid. No loculated collection. Pancreas: Unremarkable. No ductal dilation. Spleen: Minimal perisplenic fluid. The spleen is otherwise unremarkable. Adrenals: Unremarkable. No mass. Kidneys and ureters: Unremarkable. No hydronephrosis. Stomach and bowel: Unremarkable. No obstruction. IMPRESSION: 1. There is a broad cutoff of the cystic duct without clear communication with the common bile duct. This is presumably consistent with the previously noted stone in the cystic duct. 2. Gallbladder wall thickening now identified with pericholecystic fat stranding. Findings are suspicious for developing acute cholecystitis. Again, functional radionuclide imaging of the gallbladder may provide additional information, as clinically appropriate. 3. The intrahepatic and extrahepatic biliary tree is normal in size. The common bile duct measures 5 mm proximally. No choledocholithiasis identified. 4. Trace perihepatic fluid and minimal trace perisplenic fluid. No loculated collection. This is presumed reactive from the gallbladder process. I personally reviewed MRCP images dated 10/06/23 and agree with above findings (3) Cholelithiasis Biliary obstruction: without biliary obstruction Cholelithiasis location: other site Qualified Code(s): K80.80 - Other cholelithiasis without obstruction
--- NOTE | 2023-10-07 18:50 | Hospitalist Progress Note ---
Date of Service October 07, 2023 Assessment & Plan (1) Acute cholecystitis: Plan: RUQ x 6 months, with acute exacerbations on 10/03 and 10/05 A/P CT on 10/03 revealed 5 mm gallbladder stone Gallbladder U/S on 10/05 revealed stone might have passed Mildly elevated bilirubin at 1.6 on arrival Orbital x-ray negative for metal foreign bodies MRCP revealed acute cholecystitis. Appreciate general surgery consult Hold Eliquis; last taken the evening of 10/04; patient would require 72h off Eliquis prior to cholecystectomy Plan for lap jami cystectomy 10/08/2023. Multimodal pain control: Acetaminophen as needed for pain 13 Dilaudid 0.5 mg IV q4h as needed for pain 46 Dilaudid 1.0 mg IV q4h as needed for pain 7-10 (2) Atrial fibrillation: Plan: Paroxysmal; rate controlled in the ED, sinus rhythm Hold Eliquis Low risk based on [id number]: 2 Hx of mild HTN; No PMH of CHF, stroke, DC, PVD, or diabetes Will defer IV heparin bridge for now Continue metoprolol, flecainide Plan Updated at bedside Reviewed MRCP report and general surgery note Chronic/stable conditions: Hypothyroidism - Continue levothyroxine CODE STATUS: Full code VTE PPx: Hold Eliquis; SCDs for now Admission and Anticipated Discharge Date Admission Date: October 06, 2023 Subjective Patient seen and evaluated at bedside with . Patient states that he has no complaints at this time. reports he had some nausea earlier which is since subsided. MRCP revealed acute cholecystitis. General surgery plans on lap jami tomorrow, 10/08/2023. Physical Exam Physical Exam: General: No acute distress, nondiaphoretic, well-developed, well-nourished. Skin: The skin was without rashes, erythema, edema, or bruising. Cardiac: Regular rate and rhythm without murmurs gallops or rubs. Pulm: Clear to auscultation bilaterally without wheezes, rales or rhonchi. No retractions or accessory muscle use. Abdominal: Tender to palpation, most prominent in RUQ. Soft, nondistended, no rebound/guarding. Bowel sounds present. Neuro: A&O x3. No focal neurological deficits. Results & Data Results & Data Vital Signs (Past 12 Hours) Vital Signs Temp Pulse Resp BP Pulse Ox O2 Del Method 10/07/23 16:00 36.7 C 80 18 158/74 H 95 Room Air 10/07/23 08:05 37.1 C 84 18 176/69 H 96 Room Air Laboratory Results Reviewed CBC Reviewed CMP Diagnostic Findings Reviewed MRCP 10/06/2023 FINDINGS: Bile ducts: There is a broad cutoff of the cystic duct without clear communication with the common bile duct. The intrahepatic and extrahepatic biliary tree is normal in size. The common bile duct measures 5 mm proximally. No choledocholithiasis identified. Gallbladder: Gallbladder wall thickening now identified with pericholecystic fat stranding. Liver: Trace perihepatic fluid and minimal trace perisplenic fluid. No loculated collection. Pancreas: Unremarkable. No ductal dilation. Spleen: Minimal perisplenic fluid. The spleen is otherwise unremarkable. Adrenals: Unremarkable. No mass. Kidneys and ureters: Unremarkable. No hydronephrosis. Stomach and bowel: Unremarkable. No obstruction. IMPRESSION: 1. There is a broad cutoff of the cystic duct without clear communication with the common bile duct. This is presumably consistent with the previously noted stone in the cystic duct. 2. Gallbladder wall thickening now identified with pericholecystic fat stranding. Findings are suspicious for developing acute cholecystitis. Again, functional radionuclide imaging of the gallbladder may provide additional information, as clinically appropriate. 3. The intrahepatic and extrahepatic biliary tree is normal in size. The common bile duct measures 5 mm proximally. No choledocholithiasis identified. 4. Trace perihepatic fluid and minimal trace perisplenic fluid. No loculated collection. This is presumed reactive from the gallbladder process. PG Care Time/CCT Total # of Minutes Spent Total Time Spent with Patient: Total time spent is greater than 50% in coordination of care (as documented) at patient's floor/unit and/or counseling patient: Coding Level of Care Code 79853 SUB INP/OBS CARE 2/35MIN Diagnoses Acute cholecystitis K81.0 Paroxysmal atrial fibrillation I48.0 Atrial fibrillation type: paroxysmal (2) Atrial fibrillation Atrial fibrillation type: paroxysmal Qualified Code(s): I48.0 - Paroxysmal atrial fibrillation
[2023-10-07] MEDS: ACETAMINOPHEN 1,000 MG/100 ML VIAL IV PRN (23:13)
[2023-10-08 08:12] LABS: Basophils # (auto) 0.01 K/uL (0.00-0.20); Basophils % (auto) 0.1 %; Eosinophils # (auto) 0.01 K/uL (0.00-0.50); Eosinophils % (auto) 0.1 %; Hematocrit (blood only) 43.5 % (42.0-52.0); Hemoglobin 15.8 g/dl (14.0-18.0); Immature Granulocytes # (auto) 0.22 K/uL (0.01-0.20); Lymphocytes # (auto) 0.39 K/uL (1.20-3.40); Lymphocytes % (auto) 3.5 %; Mean Corpuscular Hemoglobin 28.6 pg (25.0-34.0); Mean Corpuscular Hgb Conc 36.3 g/dL (32.0-36.0); Mean Corpuscular Volume 78.8 fL (80.0-100.0); Mean Platelet Volume 9.2 fL (9.4-12.4); Monocytes # (auto) 1.27 K/uL (0.11-0.59); Monocytes % (auto) 11.5 %; Neutrophils # (auto) 9.12 K/uL (1.40-6.50); Neutrophils % (auto) 82.8 %; Platelet Count 115 K/uL (130-400); RDW Coefficient of Variation 12.1 % (11.5-14.5); RDW Standard Deviation 34.5 fL (36.4-46.3); Red Blood Count 5.52 M/uL (4.70-6.10); White Blood Count 11.02 K/ul (4.8-10.8)
--- NOTE | 2023-10-08 08:27 | History & Physical Bridge Note ---
Date of Service October 08, 2023 History & Physical Bridge Note I have examined the patient, reviewed the History & Physical and in the interval since the performance of the History & Physical I have noted the following changes of clinical significance: no changes noted
[2023-10-08 08:36] LABS: Albumin Globulin Ratio 1.1 (0.9-2); Albumin Level 3.4 gm/dl (3.4-5.0); BUN Creatinine Ratio 17.1 (10-20); Calcium 8.6 mg/dl (8.6-10.3); Creatinine Clr Calc Pharmacy 94.4 ml/min; Est GFR (African American) 106.8 ml/min; Est GFR (Non-African American) 92.1 ml/min; Globulin 3.2 gm/dl (2.5-4.0); Potassium 3.6 mmol/L (3.5-5.1); Total Protein 6.6 gm/dl (6.0-8.3)
[2023-10-08] MEDS ORDERED: LARYING-O-JET KIT (LTA) ONE (08:50)
[2023-10-08] MEDS ORDERED: LIDOCAINE 2% 2 ML VIAL/AMP(20MG/ML) INFIL ONE (08:50)
[2023-10-08] MEDS ORDERED: fentaNYL citrate PF 100 MCG/2 ML VIAL ONE ×2 (08:50→11:17)
[2023-10-08] MEDS ORDERED: ROCURONIUM BROMIDE 10 MG/ML 5 ML VIAL IV ONE (08:50)
[2023-10-08] MEDS ORDERED: MIDAZOLAM HCL 1 MG/ML 2ML VIAL ONE (08:50)
[2023-10-08] MEDS ORDERED: PROPOFOL IV EMULSION 10 MG/ML 20 ML VIAL IV ONE (08:50)
[2023-10-08] MEDS: LACTATED RINGER'S 1,000 ML IV SCH (09:15)
--- NOTE | 2023-10-08 09:36 | Anesthesiology Consultation ---
Date of Service October 08, 2023 Assessment & Plan (1) Encounter for pre-operative examination: Chart Review Chart Review: Acceptable Risk for Surgery and Patient NOT seen in Pre Admission Testing Consults Requested none History Surgery Operation Date: 10/08/23 09:50 Proposed Procedures p Laparoscopic Cholecystectomy - Walker Solis MD Height/Weight Height: 5 ft 11 in Weight: 89.6 kg Allergies Allergy/AdvReac Type Severity Reaction Status Date / Time No Known Allergies Allergy Verified 10/06/23 14:14 Medications Home Medications Medication Instructions Recorded Confirmed Last Taken [id number] 1 tab PO QAM 03/05/18 10/06/23 10/05/23 tablet (Multivitamin 50 Plus tablet) betamethasone dipropionate 0.05 % 1 applic topical BID PRN skin 12/31/22 10/06/23 10/05/23 topical ointment irritation #45 grams flecainide 100 mg tablet 100 mg PO Q12H #180 tabs 04/29/23 10/06/23 10/06/23 metoprolol tartrate 50 mg tablet 75 mg (1.5 x 50 mg) PO BID #270 06/13/23 10/06/23 10/06/23 tabs apixaban 5 mg tablet (Eliquis) 5 mg PO BID #180 tabs 06/29/23 10/06/23 10/05/23 levothyroxine 50 mcg tablet 50 mcg PO DAILY #30 tabs 08/22/23 10/06/23 10/06/23 acetaminophen 500 mg tablet 1,000 mg PO DIRECTED PRN Pain 10/04/23 10/06/23 10/05/23 (Tylenol Extra Strength) Active Medications Generic Name Dose Route Start Last Admin Trade Name Freq PRN Reason Stop Dose Admin Acetaminophen 650 mg 10/06/23 19:43 10/06/23 22:54 Acetaminophen 325 Mg Tab PO 11/05/23 19:42 650 mg Q4H PRN Administration Fever/Mild Pain (Pain 1,2,3) Flecainide Acetate 100 mg 10/06/23 21:00 10/08/23 08:21 Flecainide Acetate 100 Mg Tablet PO 11/05/23 20:59 100 mg Q12H SANTOS Administration Hydromorphone HCl 0.5 mg 10/06/23 19:43 10/07/23 14:51 Hydromorphone Inj 0.5 Mg/0.5 Ml Syr IV 10/20/23 19:42 0.5 mg Q4H PRN Administration Moderate Pain (4,5,6) on NRS Piperacillin Sod/Tazobactam 100 mls @ 25 mls/hr 10/06/23 21:00 10/08/23 05:34 Sod 4.5 gm/ Dextrose IV 10/10/23 20:59 25 mls/hr Q8H SANTOS Administration Protocol Acetaminophen 1,000 mg in 100 mls @ 400 mls/hr 10/07/23 22:36 10/07/23 23:28 Ofirmev IV 10/10/23 22:35 Infused Q8H PRN Infusion Pain or Fever Lactated Ringer's 1,000 mls @ 0 mls/hr 10/08/23 09:15 10/08/23 09:15 Lr IV 11/07/23 09:14 15 mls/hr .Q0M SANTOS Administration KVO Levothyroxine Sodium 50 mcg 10/07/23 06:30 10/08/23 05:34 Levothyroxine Sodium 50 Mcg Tablet PO 11/06/23 06:29 Not Given DAILYBB SANTOS Metoprolol Tartrate 75 mg 10/06/23 21:00 10/08/23 08:21 Metoprolol Tartrate 25 Mg Tab PO 11/05/23 20:59 75 mg BID SANTOS Administration Ondansetron HCl 4 mg 10/06/23 19:43 10/07/23 14:51 Ondansetron Inj 2 Mg/Ml 2 Ml Vial IV 11/05/23 19:42 4 mg Q6H PRN Administration Nausea NPO Date Last Intake of Fluids: 10/07/23 Time Last Intake of Fluids: 23:30 Last Intake of Fluids Comment: just enough to take morning pills Date Last Intake of Solids: 10/06/23 Time Last Intake of Solids: 09:00 Last Intake of Solids Comment: no solid food since [employer] Past Medical History Medical History Anticoagulant long-term use Osteoarthritis Migraine Hypertension Past Family History Family History Grandfather (Paternal) Myocardial infarction Father Prostate cancer Diabetes Denies family history of Ovarian cancer Breast cancer Colorectal cancer Past Surgical History Surgical History Status post total left knee replacement Colonic polyp with removal History of colonoscopy History of tooth extraction History of cataract surgery RT/LEFT Social History Smoking Status: Never smoker Do You Dip or Chew Tobacco: No Hx Alcohol Use: No Hx Substance Use: No substance use type: does not use Physical Exam Vital Signs Last Vital Signs Temp 98.4 F 10/08/23 09:06 Pulse 88 10/08/23 09:06 Resp 20 10/08/23 09:06 BP 181/88 H 10/08/23 09:06 Pulse Ox 96 10/08/23 09:06 O2 Del Method Room Air 10/08/23 09:06 Testing Laboratory Results 10/08/23 07:30 10/08/23 07:30 PT 11.7 Seconds (9.0-12.0) 10/06/23 12:10 INR 1.1 (0.9-1.1) 10/06/23 12:10 APTT 37 Seconds (21-31) H 10/06/23 12:10 Electrocardiogram Date: 10/04/23 Findings: + NSR @ Chest X-Ray Date: 10/04/23 Findings: + NAD
[2023-10-08] MEDS ORDERED: ePHEDrine sulfate 50 MG/ML AMP IV PRN (10:01)
[2023-10-08] MEDS ORDERED: ONDANSETRON INJ 2 MG/ML 2 ML VIAL IV PRN (10:01)
[2023-10-08] MEDS ORDERED: ATROPINE SULFATE 0.1 MG/ML 10ML SYR IV PRN (10:01)
[2023-10-08] MEDS: BUPIVACAINE/EPINEPHRINE 0.5% MPF 1:200,000 30 ML VIAL ONE (11:05)
[2023-10-08] MEDS: SURGICEL ABSORB HEMOSTAT 2IN X 14IN TOP ONE (11:11)
[2023-10-08] MEDS ORDERED: SUGAMMADEX SODIUM 200 MG/2 ML VIAL IV ONE (11:12)
--- NOTE | 2023-10-08 11:24 | Operative Report ---
Post Operative Report Pre & Post Diagnosis Operation Date: 10/08/23 09:50 Acute cholecystitis I identified the patient and participated in the time-out.: Yes Procedure Operation Date: 10/08/23 09:50 Laparoscopic cholecystectomy Surgeon Walker Solis MD Lead Portfolio Manager Trudy Daniel PA-C Estimated Blood Loss 35 Findings Consistent with Post-Op Diagnosis Acute inflammatory changes and stranding in the cystic duct which was milked back into the gallbladder. Specimens Gallbladder to pathology Drains None Anesthesia Type General Complications None Indications This is a 68-year-old male who was admitted to the ED with slightly elevated bilirubin along with findings consistent with acute cholecystitis. He had an MRCP which showed no filling defects and a normal-sized common bile duct. He did have a stone in the cystic duct. A laparoscopic cholecystectomy was discussed in detail. He undertstands the risks and wishes to proceed Description of Procedure The patient was taken the OR, placed in the supine position and underwent excellent general endotracheal anesthesia. Their abdomen is prepped and draped normal sterile fashion. A transverse supraumbilical incision was made and dissection was taken down to identify the anterior fascia. Two Vicryl sutures were placed on either side of the midline and his midline was then incised. The peritoneal cavity was entered bluntly with Eleni clamp. A 12mm Steele trocar was then inserted and secured. Good pneumoperitoneum was achieved to 15 mmHg pressure. The patient was placed in head up and rolled to the left position. A 11mm subxiphoid and two 5mm lateral ports were placed in the normal fashion. The gallbladder was identified and was acutely inflamed. An aspirator was then used to aspirate the gallbladder. This then facilitated grasping the the fundus of the gallbladder which was retracted superiorly. The neck of the gallbladder was grasped and then retracted laterally. This splayed open the Hepatocystic triangle. Attention was then turned to taking down the peritoneal attachments and identify the cystic duct and cystic artery. Once these were skeletonized and a medial and lateral window was created between the gallbladder fossa and the duct, thereby ensuring the critical view. A stone within the duct was milked back into the gallbladder. Then three clips were then placed distally on cystic duct one proximally on the cystic duct, it was then transected. Two clips were then placed approximately on the cystic artery one distally, the cystic artery was transected. An electrocautery hook was then used to move the gallbladder off the gallbladder fossa. There was some bile spillage but no stones were spilled. The gallbladder was then placed into an Endobag and brought out through the supraumbilical incision. The pneumoperitoneum was re- established and abdomen was irrigated out until the suction fluid was clear. There were some areas on the gallbladder fossa which were raw which were cauterized and then a Surgicel was used to cover the gallbladder fossa. No further bleeding was seen. The ports were then removed and the abdomen decompressed. The fascia of the supraumbilical incision was closed with Vicryls. 0.5% Marcaine with epinephrine local was to create a local field block. Interrupted Vicryl was used to close the skin. Dermabond was used to reinforce the incisions. Sterile dressings were applied. Patient tolerated the procedure without complication and sent to the postop recovery period of observation. They will then be sent to the floor for the rest of their care. Trudy Daniel PA-C was present and participated in the entire procedure. She was integral in skin closure, retraction, and camera manipulation. There was no qualified resident available to assist.Stop I attest to the content of the Intraoperative Record and any orders documented therein. Any exceptions are noted below.
[2023-10-08] MEDS: fentaNYL citrate PF 100 MCG/2 ML VIAL IV PRN (11:50)
--- NOTE | 2023-10-08 12:20 | Anesthesiology Progress Note ---
Date of Service October 08, 2023 Anesthesia Post Procedure Vital Signs Vital Signs: Temp Pulse Pulse Pulse Resp BP Pulse Ox 10/08/23 12:00 74 14 140/87 95 10/08/23 11:50 75 16 144/76 H 97 10/08/23 11:40 74 16 151/85 H 97 10/08/23 11:30 97.3 F L 71 18 148/80 H 98 10/08/23 09:06 98.4 F 88 20 181/88 H 96 10/08/23 07:39 98.4 F 88 16 181/88 H 96 10/07/23 20:16 98.6 F 85 16 171/82 H 96 10/07/23 16:00 98.1 F 80 18 158/74 H 95 O2 Del Method O2 Flow Rate 10/08/23 12:00 Nasal Cannula 2 10/08/23 11:50 Nasal Cannula 2 10/08/23 11:40 Nasal Cannula 3 10/08/23 11:30 Oxymask 6 10/08/23 09:06 Room Air 10/08/23 07:39 Room Air 10/07/23 20:16 Room Air 10/07/23 16:00 Room Air Pain Intensity Right Upper Abdomen: Pain Intensity: 3 Abdomen: Pain Intensity: 4 Transfer of Care Handoff Completed per policy Notes Mental Status: alert / awake / arousable and participated in evaluation Patient Amnestic to Procedure: Yes Nausea / Vomiting: adequately controlled Pain: adequately controlled Airway Patency, RR, SpO2: stable & adequate BP & HR: stable & adequate Hydration State: stable & adequate Anesthetic Complications: no major complications apparent and Pt Satisfied with anesthetic care
[2023-10-08] MEDS ORDERED: MoRPHine SULFATE 4 MG/ML 1 ML CARP\\VIAL IV PRN (13:24)
[2023-10-08] MEDS ORDERED: PROMETHAZINE HCL 12.5 MG in SODIUM CHLORIDE 0.9% 50 ML IV PRN (13:24)
[2023-10-08] MEDS ORDERED: MoRPHine SULFATE 2 MG/ML CARP IV PRN (13:24)
[2023-10-08] MEDS ORDERED: oxyCODONE/ACETAMINOPHEN 5mg/325mg TAB PO PRN (13:24)
[2023-10-08] MEDS: oxyCODONE/ACETAMINOPHEN 5mg/325mg TAB PO PRN (16:25)
--- NOTE | 2023-10-08 16:44 | Hospitalist Progress Note ---
Date of Service October 08, 2023 Assessment & Plan (1) Acute cholecystitis: Plan: Presented with RUQ abodminal pain x 6 months, with acute exacerbations on 10/03 and 10/05. - A/P CT on 10/03 revealed 5 mm gallbladder stone > Gallbladder U/S on 10/05 revealed stone might have passed - Mildly elevated bilirubin at 1.6 on arrival - Orbital x-ray negative for metal foreign bodies - MRCP revealed acute cholecystitis. - Appreciate general surgery consult > Hold Eliquis; last taken the evening of 10/04. Defer to general surgery on when to resume Eliquis. > Lap jami on 10/08/[address] Solis. Per operative report, no complications. > Clear liquid diet. Advance as tolerated. - Multimodal pain control: > Acetaminophen as needed for pain 13 > Dilaudid 0.5 mg IV q4h as needed for pain 46 > Dilaudid 1.0 mg IV q4h as needed for pain 7-10 (2) Atrial fibrillation: Plan: Paroxysmal; rate controlled in the ED, sinus rhythm Hold Eliquis Low risk based on [id number]: 2 Hx of mild HTN; No PMH of CHF, stroke, [place], PVD, or diabetes Will defer IV heparin bridge Continue metoprolol, flecainide Plan Updated at bedside Reviewed operative note Advanced to clear liquid diet Chronic/stable conditions: Hypothyroidism - Continue levothyroxine CODE STATUS: Full code VTE PPx: Hold Eliquis; SCDs for now Admission and Anticipated Discharge Date Admission Date: October 06, 2023 Subjective Patient seen and evaluated at bedside with his . He had a laparoscopic cholecystectomy with Dr. Solis today. He reports feeling sleepy from the anesthesia. He notes some expected tenderness around his surgical sites. He has not had a bowel movement or passed gas since his surgery this morning. No other complaints at this time. Physical Exam Physical Exam: General: No acute distress, nondiaphoretic, well-developed, well-nourished. Skin: The skin was without rashes, erythema, edema, or bruising. Cardiac: Regular rate and rhythm without murmurs gallops or rubs. Pulm: Clear to auscultation bilaterally without wheezes, rales or rhonchi. No retractions or accessory muscle use. Abdominal: Soft, nondistended, no rebound/guarding. Appropriate level of tenderness around surgical sites. Bowel sounds present. Neuro: A&O x3. No focal neurological deficits. Results & Data Results & Data Vital Signs (Past 12 Hours) Vital Signs Temp Pulse Pulse Resp BP Pulse Ox O2 Del Method 10/08/23 15:54 37.1 C 82 18 145/83 H 94 Room Air 10/08/23 14:54 36.4 C L 80 18 149/80 H 94 Room Air 10/08/23 13:54 37.0 C 79 17 136/84 96 Room Air 10/08/23 13:24 36.6 C 80 16 146/88 H 93 Room Air 10/08/23 13:00 75 14 139/81 96 Room Air 10/08/23 12:26 74 16 149/87 H 97 Room Air 10/08/23 12:20 36.8 C 73 16 141/86 H 97 Room Air 10/08/23 12:10 73 16 146/89 H 96 Nasal Cannula 10/08/23 12:00 74 14 140/87 95 Nasal Cannula 10/08/23 11:50 75 16 144/76 H 97 Nasal Cannula 10/08/23 11:40 74 16 151/85 H 97 Nasal Cannula 10/08/23 11:30 36.3 C L 71 18 148/80 H 98 Oxymask 10/08/23 09:06 36.9 C 88 20 181/88 H 96 Room Air 10/08/23 07:39 36.9 C 88 16 181/88 H 96 Room Air O2 Flow Rate 10/08/23 15:54 10/08/23 14:54 10/08/23 13:54 10/08/23 13:24 10/08/23 13:00 0 10/08/23 12:26 0 10/08/23 12:20 0 10/08/23 12:10 2 10/08/23 12:00 2 10/08/23 11:50 2 10/08/23 11:40 3 10/08/23 11:30 6 10/08/23 09:06 10/08/23 07:39 Laboratory Results Reviewed CBC Reviewed CMP PG Care Time/CCT Total # of Minutes Spent Total Time Spent with Patient: Total time spent is greater than 50% in coordination of care (as documented) at patient's floor/unit and/or counseling patient: Coding Level of Care Code 49517 SUB INP/OBS CARE Diagnoses Acute cholecystitis K81.0 Paroxysmal atrial fibrillation I48.0 Atrial fibrillation type: paroxysmal (2) Atrial fibrillation Atrial fibrillation type: paroxysmal Qualified Code(s): I48.0 - Paroxysmal atrial fibrillation
[2023-10-09 06:55] LABS: Basophils # (auto) 0.01 K/uL (0.00-0.20); Basophils % (auto) 0.1 %; Hematocrit (blood only) 42.9 % (42.0-52.0); Hemoglobin 15.5 g/dl (14.0-18.0); Immature Granulocytes # (auto) 0.13 K/uL (0.01-0.20); Immature Granulocytes % (auto) 1.3 %; Lymphocytes # (auto) 0.45 K/uL (1.20-3.40); Lymphocytes % (auto) 4.4 %; Mean Corpuscular Hemoglobin 28.8 pg (25.0-34.0); Mean Corpuscular Hgb Conc 36.1 g/dL (32.0-36.0); Mean Corpuscular Volume 79.7 fL (80.0-100.0); Mean Platelet Volume 9.5 fL (9.4-12.4); Monocytes # (auto) 0.79 K/uL (0.11-0.59); Monocytes % (auto) 7.7 %; Neutrophils # (auto) 8.82 K/uL (1.40-6.50); Neutrophils % (auto) 86.5 %; Platelet Count 139 K/uL (130-400); RDW Coefficient of Variation 12.3 % (11.5-14.5); RDW Standard Deviation 35.5 fL (36.4-46.3); Red Blood Count 5.38 M/uL (4.70-6.10)
[2023-10-09 07:06] LABS: Albumin Level 3.3 gm/dl (3.4-5.0); Bilirubin,Total 0.8 mg/dl (0.2-1.0); Calcium 8.7 mg/dl (8.6-10.3); Creatinine Clr Calc Pharmacy 100.5 ml/min; Est GFR (African American) 109.6 ml/min; Est GFR (Non-African American) 94.6 ml/min; Globulin 3.3 gm/dl (2.5-4.0); Potassium 3.9 mmol/L (3.5-5.1); Total Protein 6.6 gm/dl (6.0-8.3)
--- NOTE | 2023-10-09 08:30 | Surgery Progress Note ---
Date of Service October 09, 2023 Assessment & Plan (1) Acute cholecystitis: Plan: s/p lap jami doing well discharge per medical team instructions in chart appt my clinic 3 weeks Rx for pain per medical team Admission and Anticipated Discharge Date Admission Date: October 06, 2023 Subjective doing well taking po ambulating Review of Systems Constitutional: no fever and no chills Respiratory: no cough and no dyspnea Cardiovascular: no chest pain and no radiating jaw, neck or arm pain Gastrointestinal: + abdominal pain; no nausea and no vomit ing Genitourinary: no dysuria Physical Exam Gastrointestinal (Abdomen): Inspection/Auscultation: abdomen normal to inspection and normal bowel sounds; abdomen not distended Percussion/Palpation: + abdomen tender and abdomen soft; no guarding and abdomen not rigid Results & Data Vital Signs (Past 12 Hours) Vital Signs Temp Pulse Resp BP Pulse Ox O2 Del Method 10/09/23 07:00 36.5 C 67 18 174/77 H 97 Room Air 10/09/23 03:02 36.4 C L 67 18 145/75 H 95 Room Air 10/08/23 22:33 36.7 C 64 16 125/75 95 Room Air
--- NOTE | 2023-10-09 16:17 | Discharge Summary ---
Discharge Summary Date of Service October 09, 2023 Principal Dx & Hospital Course #1 = Principal Diagnosis (1) Acute cholecystitis: Presented with RUQ abodminal pain x 6 months, with acute exacerbations on 10/03 and 10/05. - A/P CT on 10/03 revealed 5 mm gallbladder stone > Gallbladder U/S on 10/05 revealed stone might have passed - Mildly elevated bilirubin at 1.6 on arrival - Orbital x-ray negative for metal foreign bodies - MRCP revealed acute cholecystitis - General surgery consulted > Hold Eliquis; last taken the evening of 10/04. Resume Eliquis 48 hours postop. > Lap jami on 10/08/[address] Solis. Per operative report, no complications. - Tolerated regular diet - Multimodal pain control on discharge with Tylenol, ibuprofen, and Percocet PRN - Follow-up with surgery in 2-3 weeks. (2) Atrial fibrillation: Paroxysmal; rate controlled in the ED, sinus rhythm Hold Eliquis until 48 hours postop Low risk based on [id number]: 2 Hx of mild HTN; No PMH of CHF, stroke, MN, PVD, or diabetes Will defer IV heparin bridge Continue metoprolol, flecainide Plan Chronic/stable conditions: Hypothyroidism - Continue levothyroxine CODE STATUS: Full code VTE PPx: Hold Eliquis; SCDs for now Admission HPI Per Admitting Provider Sebastián is a pleasant 68-year-old male with PMH of hypothyroidism. He presented on 10/05 for RUQ pain x 6 months, with an acute exacerbation over the past couple days. Recent PA ED visit on 10/03 for increased pain, and CT determined that he did have a 5 mm stone. Patient reports that the RUQ pain has been ongoing over the past couple months, and would normally ease up on its own; occurred at a frequency of once per month. This time however, it did not go away. He endorses RUQ pain that is 5/10 at present after receiving pain medicine in the ED; 10/10 at worst. No radiation to the back or down the stomach. He describes it as a dull, constant, aching pain. It is worse after large meals; patient does report he had ice cream Friday night. He took 3 Tylenol this morning, which helped a little bit. Pain is slightly alleviated when he lies flat on his back. No prior history of abdominal surgeries. His only recent surgery was knee surgery 3 years ago; he denies history of metal rods or implants. No recent change in diet. Last BM was this morning, after he took a stool softener last night. He reports that he took all of his regular morning medications today except for Eliquis (which she last took the evening of 10/04). Only recent change in medications was that he increased his levothyroxine recently. Patient takes Eliquis for atrial fibrillation. He denies smoking, tobacco use, and recent alcohol use. He is hypertensive at 189/90 at time of admission; vitals otherwise stable. ED course: Zosyn 4.5 g IV Zofran 4 mg IV Morphine sulfate 4 mg IV x 2 NSS 1000 mL IV ROS: Patient endorses RUQ pain and soft stool. Patient denies fever, chills, night-sweats, chest pain, SOB, N/V/D, changes in urinary/bowel habits, burning with urination, blood in urine/stool, melena, or dysuria. Admission Exam Per Admitting Provider General: no acute distress; pleasant affect; non-toxic appearing; well- nourished; cooperative; SpO2 98% on RA HEENT: normocephalic, atraumatic; no scleral icterus; PERRLA; moist mucus membrane; vision and hearing grossly intact Neck: supple; no lymphadenopathy; trachea midline Skin: warm, dry without signs of tenting; no cyanosis; no rashes, bruising, lesions, or erythema noted CV: chest wall NTP; RRR; S1/S2 normal; no murmurs/rubs/gallops; pulses intact and symmetric at radial, DP, and PT Lungs: no acute respiratory distress; symmetrical chest wall expansion; clear breath sounds across all lung peterson w/o adventitious sounds; no wheezing ABD: Soft; RUQ is tender to palpation; positive Cortez sign; BS present; no rebo und/guarding; no distention; no rashes or bruising on the abdomen or flanks MSK: no tics or fasciculations; no edema noted in the LEs b/l, nonerythematous Neuro: A&Ox3; normal mood and affect; fluent speech; no focal deficits; sensation grossly intact in the LEs b/l Discharge Exam General: No acute distress, nondiaphoretic, well-developed, well-nourished. Skin: The skin was without rashes, erythema, edema, or bruising. Cardiac: Regular rate and rhythm without murmurs gallops or rubs. Pulm: Clear to auscultation bilaterally without wheezes, rales or rhonchi. No retractions or accessory muscle use. Abdominal: Soft, nondistended, no rebound/guarding. Appropriate level of tenderness around surgical sites. Bowel sounds present. Neuro: A&O x3. No focal neurological deficits. Updated Medication List Medication Instructions Recorded Confirmed Type [id number]-[id number] 1 tab PO QAM 03/05/18 10/06/23 History tablet (Multivitamin 50 Plus tablet) betamethasone dipropionate 0.05 % 1 applic topical BID PRN skin 12/31/22 10/06/23 Rx topical ointment irritation #45 grams flecainide 100 mg tablet 100 mg PO Q12H #180 tabs 04/29/23 10/06/23 Rx metoprolol tartrate 50 mg tablet 75 mg (1.5 x 50 mg) PO BID #270 06/13/23 10/06/23 Rx tabs apixaban 5 mg tablet (Eliquis) 5 mg PO BID #180 tabs 06/29/23 10/06/23 Rx levothyroxine 50 mcg tablet 50 mcg PO DAILY #30 tabs 08/22/23 10/06/23 Rx acetaminophen 500 mg tablet 1,000 mg PO DIRECTED PRN Pain 10/04/23 10/06/23 History (Tylenol Extra Strength) oxycodone-acetaminophen 5 mg-325 1 tab PO Q6H PRN pain #15 tabs 10/09/23 Rx mg tablet (Percocet) Hospital Stay Data Consultations 10/06/23 15:56 ED Decision to Admit Stat 10/06/23 16:50 Consult General Surgery Routine Procedures Performed Operation Date: 10/08/23 09:50 Actual Procedures p Laparoscopic Cholecystectomy - Walker Solis MD Diagnostic Imagining Performed 10/06/23 11:29 US gallbladder Stat 10/06/23 16:51 MRI MRCP [MR MRCP] Stat Pending Results Patient Have Any Pending Studies at Discharge: Yes (gallbladder pathology, will be reviewed at postop visit) Discharge Instructions Given to Patient (Per Discharging Provider) Post-Surgical ~Discharge Instructions Activity Recommendations: - lifting limitation: (25 pounds for 3-4 weeks), - exercise/sex/sports limit: (nonstrenuous for 2 weeks), - driving or machine use limit: (none for 1 week or until pain free and no longer taking narcotic pain medication), - Shower/bathe limit: (may shower, no submerging incisions un derwater for 2 weeks) Diet: - Resume previous diet SPECIAL CARE INSTRUCTIONS: - May shower.. Let water run over area and pat dry. - Leave surgical glue on incisions, this will fall off on its own. Do not pick at it. - Call the surgeon's office with any questions or concerns - - (ex. temperature higher than 101 degrees F, excessive bleeding or pain). MEDICATIONS: - Resume previous medications unless instructed otherwise by your surgeon. - May alternate extra strength Tylenol and Ibuprofen as needed for mild to moderate pain -650 mg Tylenol every 6 hours as needed - Ibuprofen 600 mg every 6 hours as needed (take with food) - Percocet 1 every 6 hours, as needed for moderate to severe pain - Recommend daily stool softener (Colace) while taking narcotic pain medication to prevent constipation or straining. Drink plenty of water daily. FOLLOW UP VISIT: - If not already scheduled, please call the office to schedule a two week follow-up appointment. Office number Alternate between Tylenol and ibuprofen as needed for mild to moderate pain. Take Percocet 1 tablet every 6 hours NEEDED for severe/breakthrough pain. This prescription has been sent to the [facility] pharmacy on [facility]. Please contact your surgeon's office if you experience any of the following: Fever of 100.4 F or higher, redness/pain/fluid leaking from an incision site, yellow color to your skin or eyes, severe pain or cramping in your belly, vo miting that continues and unable to keep down fluids, unable to have a bowel movement within 3 days, difficulty peeing, rectal bleeding, or leg swelling. Please return to the hospital if you experience any of the following: Shortness of breath, trouble breathing, chest pain, heart palpitations, lightheadedness, dizziness, or passing out. Total Time Total Time Spent Total Time Spent (In Minutes): Greater than 30 minutes spent completing this discharge process including direct patient care, medication reconciliation, documentation, review of labs and images, and coordination of care. Coding Level of Care Code 72752 INP/OBS DISCH >30 MIN Diagnoses Acute cholecystitis K81.0 Paroxysmal atrial fibrillation I48.0 Atrial fibrillation type: paroxysmal
== END 2023-10-09 15:11 | disposition home or self-care (01) | DRG 419 ==
LOC: ED 11:14 → SUATTDRO 17:15 → 3N 17:15

== ENCOUNTER 2024-04-23 08:26 | Observation (INO) ==
--- NOTE | 2024-03-22 13:13 | PAT Medication Instructions ---
Medication Instructions Date of Service March 22, 2024 Home Medications Medication Instructions Recorded flecainide 100 mg tablet 100 mg PO Q12H #180 tabs 04/29/23 metoprolol tartrate 50 mg tablet 75 mg (1.5 x 50 mg) PO BID #270 06/13/23 tabs apixaban 5 mg tablet (Eliquis) 5 mg PO BID #180 tabs 06/29/23 amoxicillin 500 mg tablet 2,000 mg (4 x 500 mg) PO ONCE #4 03/18/24 tabs [id number]-hmnsan tablet (Multivitamin 50 Plus tablet) 1 tab PO QAM flecainide 100 mg tablet 100 mg PO Q12H metoprolol tartrate 50 mg tablet 75 mg (1.5 x 50 mg) PO BID apixaban 5 mg tablet (Eliquis) 5 mg PO BID acetaminophen 500 mg tablet (Tylenol Extra Strength) 1,000 mg PO UD PRN Pain amoxicillin 500 mg tablet 2,000 mg (4 x 500 mg) PO ONCE cholecalciferol (vitamin D3) 125 mcg (5,000 unit) tablet (Vitamin D3) 125 mcg PO QAM levothyroxine 50 mcg tablet 50 mcg PO QAM ASK your prescriber and surgeon apixaban 5 mg tablet (Eliquis) 5 mg PO BID (From anesthesia perspective, apixaban/Eliquis needs to be stopped 72 hours before surgery. Please check if okay with doctor that prescribes this to you) DO NOT take the morning of surgery Multivitamin 50 Plus tablet 1 tab PO QAM cholecalciferol (vitamin D3) 125 mcg (5,000 unit) tablet (Vitamin D3) 125 mcg PO QAM Take morning of surgery With a small sip of water, OTHERWISE NOTHING TO EAT OR DRINK AFTER MIDNIGHT: flecainide 100 mg tablet 100 mg PO Q12H metoprolol tartrate 50 mg tablet 75 mg (1.5 x 50 mg) PO BID acetaminophen 500 mg tablet (Tylenol Extra Strength) 1,000 mg PO UD PRN Pain (if needed) levothyroxine 50 mcg tablet 50 mcg PO QAM Take evening before surgery flecainide 100 mg tablet 100 mg PO Q12H metoprolol tartrate 50 mg tablet 75 mg (1.5 x 50 mg) PO BID acetaminophen 500 mg tablet (Tylenol Extra Strength) 1,000 mg PO UD PRN Pain (if needed) Other Notes If you have any questions please call us at [phone] or [phone] or [phone] or [phone]
--- NOTE | 2024-03-25 08:28 | Anesthesiology Consultation ---
Date of Service March 25, 2024 Assessment & Plan (1) Encounter for pre-operative examination: - Infectious disease screening: Per assessment on 03/25/24- No known recent infectious disease contacts. URI symptoms onset ~03/21/24. Symptoms resolved except residual mild rhinorrhea. DOS 04/23/24. Patient advised to contact PAT/surgeon if symptoms not at baseline prior to surgery. - Outpatient joint assessment: Pt currently scheduled for inpatient pathway. If surgeon requests review for outpatient joint pathway, patient is not recommended candidate for outpatient joint program from anesthesia standpoint based on hmaida ilable information. - Eliquis instructions: patient made aware that for neuraxial anesthesia, Eliquis needs to be held 72 hours prior to surgery. Patient voiced understanding /will check if okay with prescriber. - Cardiology visit (06/02/23): "1. Atrial fibrillation: His atrial fibrillation burden remains uncertain, he may have brief episodes of atrial fibrillation but his recent symptoms sounded more like premature beats and have been well- controlled on increasing his flecainide. If he has brief episodes of atrial fibrillation that is acceptable on his current regimen.. Anticoagulation: His [id number] score is now 2 (high blood pressure and age) and as such anticoagulation should be continued. I have recommended that he continue Eliq uis which is at the correct dose of 5 mg twice a day.. Hypertension: His blood pressure is good today. I would like him to come back in for follow-up in 1 year as long as he continues to feel well, if not he is going to contact us and we can have him come in earlier or possibly arrange a monitor to document his arrhythmia. We have not had an echocardiogram for quite some time therefore I am going to schedule that before his next visit, sooner if he has any cardiovascular symptoms.. Follow Up: 1 Year" - Previous surgical/anesthesia hx: * Laparoscopic cholecystectomy (10/08/23): Grade 1 view, MAC#3, ETT 7.5 at [facility] * Left TKA (05/19/20): SAB at L3/4 + regional at [facility] Chart Review Chart Review: Acceptable Risk for Surgery and Patient seen in Pre Admission Testing Teaching & Discussion Pre-Anesthesia Teaching/Discussion Notes: Instructed NPO after midnight before surgery,except medications with 15 cc of water. Medication instructions provided according to the PAT guidelines. History Surgery Operation Date: 04/23/24 08:50 Proposed Procedures p Right Total Knee Arthroplasty - Alcides Collado MD Height/Weight Height: 5 ft 10 in Weight: 94.7 kg Allergies Allergy/AdvReac Type Severity Reaction Status Date / Time No Known Allergies Allergy Verified 03/22/24 12:21 Medications Home Medications Medication Instructions Recorded Confirmed Last Taken [id number]-[id number] 1 tab PO QAM 03/05/18 03/22/24 10/05/23 tablet (Multivitamin 50 Plus tablet) flecainide 100 mg tablet 100 mg PO Q12H #180 tabs 04/29/23 03/22/24 10/06/23 metoprolol tartrate 50 mg tablet 75 mg (1.5 x 50 mg) PO BID #270 06/13/23 03/22/24 10/06/23 tabs apixaban 5 mg tablet (Eliquis) 5 mg PO BID #180 tabs 06/29/23 03/22/24 10/05/23 acetaminophen 500 mg tablet 1,000 mg PO UD PRN Pain 10/04/23 03/22/24 10/05/23 (Tylenol Extra Strength) amoxicillin 500 mg tablet 2,000 mg (4 x 500 mg) PO ONCE #4 03/18/24 03/22/24 Unknown tabs cholecalciferol (vitamin D3) 125 125 mcg PO QAM 03/22/24 03/22/24 Unknown mcg (5,000 unit) tablet (Vitamin D3) levothyroxine 50 mcg tablet 50 mcg PO QAM 03/22/24 03/22/24 Unknown Past Medical History Medical History Atrial fibrillation Follows with [facility] cardio History of COVID-19 Late 01/2024 History of migraine Hypertension Hypothyroidism Osteoarthritis Right thyroid nodule Exercise / Class Metabolic Activity II 4-5 Yardwork/Stairs/Walk up hill Past Family History Family History Grandfather (Paternal) Myocardial infarction Father Prostate cancer Diabetes Denies family history of Ovarian cancer Breast cancer Colorectal cancer Past Surgical History Surgical History Colonic polyp with removal History of cataract surgery R/L History of colonoscopy History of tooth extraction S/P cholecystectomy Laparoscopic cholecystectomy (10/08/23): Grade 1 view, MAC#3, ETT 7.5 at [facility] Status post total left knee replacement Left TKA (05/19/20): SAB at L3/4 + regional at [facility] Past Anesthesia History No Hx of Anesthesia Complications and No Family Hx of Anesthesia Complications History of PONV No Hx of PONV and Hx of Motion Sickness Social History Smoking Status: Never smoker Do You Dip or Chew Tobacco: No Hx Alcohol Use: Yes (Rare) Hx Substance Use: No substance use type: does not use Review of Systems Patient denies chest pain, shortness of breath, dyspnea on exertion, fever, chills, cough, wheezing, palpitations. Physical Exam Vital Signs BP 149/83 P 68 SP02 98%RA RESP 16 Physical Full cervical extension range of motion. Full TMJ range of motion. TMD 3 finger breaths Mallampati Score III Dentition: missing side/molar, + several crowns Lungs: clear throughout to auscultation Cardiac: regular rate and rhythm, no murmurs noted Spine: normal Carotid arteries: negative bruit Extremities: no LE edema Lab Results Anesthesia Preop Results Results Anesthesia Widget: WBC 5.02 K/ul (4.8-10.8) 03/25/24 Hgb 15.5 g/dl (14.0-18.0) 03/25/24 Hct 44.5 % (42.0-52.0) 03/25/24 Plt 186 K/uL (130-400) 03/25/24 Na 138 mmol/L (136-145) 03/25/24 K 4.1 mmol/L (3.5-5.1) 03/25/24 Cl 108 mmol/L (98-107) H 03/25/24 CO2 25 mmol/L (21-32) 03/25/24 BUN 15 mg/dl (6-23) 03/25/24 Creat 0.97 mg/dl (0.6-1.4) 03/25/24 Glucose Level 137 mg/dl (70-99(Fasting)) H 03/25/24 PT 10.1 Seconds (9.0-12.0) 03/25/24 PTT 31 Seconds (21-31) 03/25/24 INR 0.9 (0.9-1.1) 03/25/24 Blood Type O Positive 03/25/24 Antibody Screen NEGATIVE 03/25/24 Testing Laboratory Results HGBA1C (01/08/24): 5.5% Electrocardiogram Date: 10/04/23 NSR at 65bpm. LAD. No significant change compared to 06/02/23 per chief port director comparison. Chest X-Ray Date: 10/04/23 FINDINGS: Lung volumes are normal. Lungs are clear. There is no pneumothorax or pleural effusion. Cardiac size is normal. Mediastinal contours are normal. There is no evidence for pulmonary edema. IMPRESSION: No acute cardiopulmonary findings.
--- NOTE | 2024-04-21 17:57 | History & Physical Report ---
Date of Service April 21, 2024 Assessment & Plan (1) Status post total left knee replacement: 68-year-old gentleman 4 years out from a left knee replacement with advanced right knee DJD. Got underlying A-fib and failed conservative treatment. He is now like to have his right knee replaced. Plan: Tomi taken to the operating do a right total knee replacement the risks Mente this procedure explained. He understands. He will need to hold his Eliquis 3 days preop. 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 He is planned to be discharged to home using [facility] health program. Will use Eliquis for DVT prophylaxis. (2) Status post left knee replacement: (3) Atrial fibrillation: (4) Hypothyroidism: History of Present Illness Chief Complaint: . Persistent right knee pain and discomfort. Primary Care Provider: Billy Luevano MD . The patient is a 68-year-old gentleman who now presents for surgical treatment of his right knee. He had his left knee replaced back in 2020 and is recovered pretty nicely from this. He continues to be limited by right knee pain discomfort. She been through extensive conservative treatment over the years which has become less successful. He has good and bad days but have more bad days. He has difficulty walking on some days. He is ready to have his right knee fixed. Allergies Allergy/AdvReac Type Severity Reaction Status Date / Time No Known Allergies Allergy Verified 03/22/24 12:21 Home Medications Medication Instructions Recorded Confirmed Type [id number]-dvnmqudv-gknzpl 1 tab PO QAM 03/05/18 03/22/24 History tablet (Multivitamin 50 Plus tablet) metoprolol tartrate 50 mg tablet 75 mg (1.5 x 50 mg) PO BID #270 06/13/23 03/22/24 Rx tabs apixaban 5 mg tablet (Eliquis) 5 mg PO BID #180 tabs 06/29/23 03/22/24 Rx acetaminophen 500 mg tablet 1,000 mg PO UD PRN Pain 10/04/23 03/22/24 History (Tylenol Extra Strength) amoxicillin 500 mg tablet 2,000 mg (4 x 500 mg) PO ONCE #4 03/18/24 03/22/24 Rx tabs cholecalciferol (vitamin D3) 125 125 mcg PO QAM 03/22/24 03/22/24 History mcg (5,000 unit) tablet (Vitamin D3) levothyroxine 50 mcg tablet 50 mcg PO QAM 03/22/24 03/22/24 History flecainide 100 mg tablet 100 mg PO Q12H #180 tabs 04/12/24 Rx Past Med/Surg History Problem List Encounter for pre-operative examination Right thyroid nodule Hypothyroidism Atrial fibrillation Medical History History of COVID-19 Late 01/2024 History of migraine Right thyroid nodule Hypothyroidism Atrial fibrillation Follows with [facility] cardio Osteoarthritis Hypertension Surgical History S/P cholecystectomy Laparoscopic cholecystectomy (10/08/23): Grade 1 view, MAC#3, ETT 7.5 at [facility] Status post total left knee replacement Left TKA (05/19/20): SAB at L3/4 + regional at [facility] Colonic polyp with removal History of colonoscopy History of tooth extraction History of cataract surgery R/L Family History Grandfather (Paternal) Myocardial infarction Father Prostate cancer Diabetes Denies family history of Ovarian cancer Breast cancer Colorectal cancer Social History Smoking Status: Never smoker Second Hand Exposure: No; Do You Dip or Chew Tobacco: No; Hx Alcohol Use: Yes (Rare) Hx Substance Use: No Preferred Language: Swazi Communication Ability: Effective Pulley Maintainer Required: No Beliefs That Will Affect Care: None marital status: Current Living Situation: Spouse and Family Current Living Situation Comment: and daughter current occupational status: employed current occupation: Crop farming Feels Safe at Home: Yes Childhood Exposure to Second-Hand Smoke: No Dental Care, Regularly: Yes Physical Activity Frequency: Daily Seatbelt Use: always Sunscreen Use: No Assistive Devices: Glasses Review of Systems All systems reviewed & are unremarkable except as noted in HPI & below. Physical Exam . Physical examination reveals a pleasant middle-age male but looks in reasonably good health. Examination of both knees reveals patient walks in dependently. Examination of the right knee reveals varus alignment to his knee. Got bony perjury medially. Small knee effusion. Range of motion 5-1 20. No instability. Examination left knee reveals well-healed incision. No swelling. Range of motion 0-1 20. Constitutional WD/WN, vitals as above Respiratory normal respiratory effort, lungs clear to auscultation Cardiovascular RRR, no murmur, no edema Gastrointestinal (Abdomen) normal bowel sounds, soft, nontender, no hepatosplenomegaly Results & Data Results & Data Laboratory Results . Diagnostic Findings . X-rays of the right knee were reviewed. Shows advanced right knee DJD. Is got complete loss of his medial joint space. The left knee replacement looks to be in good position without problems. PG Care Time/CCT Total # of Minutes Spent Total Time Spent with Patient: Total time spent is greater than 50% in coordination of care (as documented) at patient's floor/unit and/or counseling patient: Coding Level of Care Code None Diagnoses Status post total left knee replacement Z96.652 Status post left knee replacement Z96.652 Paroxysmal atrial fibrillation I48.0 Atrial fibrillation type: paroxysmal Hypothyroidism E03.9 (3) Atrial fibrillation Atrial fibrillation type: paroxysmal Qualified Code(s): I48.0 - Paroxysmal atrial fibrillation
[~2024-04-23 08:26] MED LIST changes: -ACETAMINOPHEN 500 MG TAB PO SCH; -BUPIVACAINE 0.5 % 5 MG/1 ML PF 10ML VIAL ONE; -BUPIVACAINE LIPOSOME/PF 266 MG, BUPIVACAINE/EPINEPHRINE 50 ML, SODIUM CHLORIDE 0.9% 30 ... INFIL SCH; -FAMOTIDINE 20 MG TAB PO SCH; -GABAPENTIN 300 MG CAP PO SCH; -LR 500ML BOLUS, THEN 15ML/HR IV SCH; -LR 60ML/HR IV SCH; -METOCLOPRAMIDE HCL 10 MG TABLET PO SCH; +MIDAZOLAM HCL 1 MG/ML 2ML VIAL ONE; +PROPOFOL IV EMULSION 10 MG/ML 100 ML VIAL IV ONE; -TRANEXAMIC ACID 1,000 MG **IV Intra-op IV SCH; -TRANEXAMIC ACID 1,000 MG **IV Pre-op IV SCH; +fentaNYL citrate PF 100 MCG/2 ML VIAL ONE
--- NOTE | 2024-04-23 08:56 | History & Physical Bridge Note ---
Date of Service April 23, 2024 History & Physical Bridge Note I have examined the patient, reviewed the History & Physical and in the interval since the performance of the History & Physical I have noted the following changes of clinical significance: no changes noted
[2024-04-23] MEDS: LR 500ML BOLUS, THEN 15ML/HR IV SCH (09:28)
[2024-04-23] MEDS: CeleBREX 200 MG CAP PO SCH (09:29)
[2024-04-23] MEDS: FAMOTIDINE 20 MG TAB PO SCH (09:29)
[2024-04-23] MEDS: Scopolamine 1 MG TDSY TD SCH (09:30)
[2024-04-23] MEDS: dexAMETHasone**PF** 10 MG/ML VIAL IV SCH (09:30)
[2024-04-23] MEDS: ACETAMINOPHEN 500 MG TAB PO SCH ×2 (09:30→15:51)
[2024-04-23] MEDS: LR 60ML/HR IV SCH (09:31)
[2024-04-23] MEDS: METOCLOPRAMIDE HCL 10 MG TABLET PO SCH (09:31)
[2024-04-23] MEDS ORDERED: KETOROLAC 30 MG/ML VIAL IV PRN (10:30)
[2024-04-23] MEDS ORDERED: ATROPINE SULFATE 0.1 MG/ML 10ML SYR IV PRN (10:30)
[2024-04-23] MEDS ORDERED: HYDROmorphone INJ 1 MG/ML SYRINGE IV PRN (10:30)
[2024-04-23] MEDS ORDERED: ePHEDrine sulfate 50 MG/ML AMP IV PRN (10:30)
[2024-04-23] MEDS ORDERED: ONDANSETRON INJ 2 MG/ML 2 ML VIAL IV PRN ×2 (10:30→14:42)
[2024-04-23] MEDS: ceFAZolin 2000MG 2,000 MG/15 ML SYR IV SCH ×2 (11:18→19:40)
[2024-04-23] MEDS: ORTHO JOINT ANESTHETIC ONE (12:03)
[2024-04-23] MEDS: TRANEXAMIC ACID 1,000 MG **IV Intra-op IV SCH (12:19)
[2024-04-23] MEDS: VANCOMYCIN HCL 1000MG/20ML VIAL ONE (12:29)
[2024-04-23] MEDS: ROPIV 0.5% 246mg, Ketorolac 30mg, EPINEPHrine 0.5mg in NSS INFIL SCH (12:29)
--- NOTE | 2024-04-23 13:18 | Operative Report ---
PG Post Operative Report Pre & Post Diagnosis Operation Date: 04/23/24 10:40 Pre-Op Diagnosis: right knee degenerative joint disease Post-Op Diagnosis: right knee degenerative joint disease I identified the patient and participated in the time-out.: Yes Procedure Operation Date: 04/23/24 10:40 Actual Procedures p Right Total Knee Arthroplasty(Right) - Alcides Collado MD Surgeon Alcides Collado MD Order Builder Loader Manuel Singletary PA-C Estimated Blood Loss 100 Findings Consistent with Post-Op Diagnosis Operative findings were advanced right knee tricompartment DJD. He had extensive grade 4 [id number]-gy-lcoz disease most severe in the medial side but in all 3 compartments. Varus deformity to the knee. Moderate-sized knee effusion. He had a very large ossicles and the patella tendon and 1 in the fat pad behind the patella tendon. Specimens Right knee sent for pathology. Anesthesia Type Spinal MAC Complications none Disposition Accompanied Patient To Recovery: No Indications Patient is a 68-year-old gentleman said a long history of bilateral knee pain and discomfort this gotten worse over time. He had his left knee replaced about 4 years ago and is done well from this. Continued be limited by progressive increasing pain in his right knee. He elected to see with total knee arthroplasty. Description of Procedure Operative implants consist of: 1. Biomet Vanguard size 75 right posterior Byce femoral component. 2. Biomet size 75 tibial tray. 3. 10 mm posterior stabilized polyethylene insert. 4. 31 x 8 all poly patella. The patient was taken to the op room, identified, placed on the operating table in the supine position. All conductors were appropriately padded. IV antibiotics fibra anesthesia team. A spinal anesthetic and adductor canal block had been provided in the holding area. Right side turn was then placed. The right lower extremity was then prepped and draped in usual sterile fashion. The right leg was elevated and exsanguinated with use of an Esmarch and a turn was placed at 300 mmHg. An anterior approach of the right knee was then performed to a slightly curvilinear incision over the anterior aspect the knee. We did deviate this a little bit medial in order to avoid some psoriatic plaques. Sharp dissection was got through subcutaneous tissue down the extensor mechanism. A medial parapatellar arthrotomy incision was made. Some subperiosteal dissection was carried out medially. The fat pad was dissected from Neath patella tendon. Lateral patellofemoral ligament was released. The patella was subluxated laterally and the knee was flexed. The osteophytes taken off distal femur. The ACL and PCL were then released from distal femur and the tibia subluxated anteriorly. He had a large bony fragment in the retropatellar fat pad. I resected this to allow mobilization of the patella. Even with this resected I could not place the extradural tibial alignment jig. Therefore you we used intramedullary guide. The tibial eminence was resected. The IM prashant was placed. The proximal tibial cutting guide was attached to the IM prashatn and the proximal tibial cut was made remove out of millimeter bone from most efficient aspect medial tibial plateau. The tibia was then sized to a size 75. Attention drawn the femur. The distal femur termed a sharp drop with intramedullary canal was suction. A right 6 degree valgus cutting guide was placed. The distal femoral cutting block was pinned in place. Distal femoral cut was made take an additional 3 mm of bone off distal femur. The femur was then sized to a size 75. The AP cutting block was pinned parallel to the epicondylar axis which was 3 degrees of external rotation. The anterior cut, anterior chamfer, posterior cut, posterior chamfer cuts were made. The box cutting guide was placed and adjusted slightly laterally. The box cut was made. The knee was flexed. The remnants of the medial and lateral menisci were excised. The osteophytes taken off the posterior aspect the femur. A trial femoral component was placed. The tibial tray was pinned Charleen external rotation and the drill and stem punch use great defect in proximal tibia for the tibial tray. The knee was then trialed and the 10 mm insert fit most appropriately. Attention drawn the patella. Of the patella was cleaned of all soft tissues. Patella thickness measured 25 mm thickness was cut down to 15. Was sized to a size 31 patella. The lug holes were drilled for 31 patella. Lateral osteophytes removed. Patella button was placed. Knee was taken through range of motion patella tracked nicely with no thumbs test. Attention drawn toward placement permanent components. All trial components were removed. A bone plug was placed into the distal femur as well as the proximal tibia. The wound was irrigated with copious amounts of pulsatile lavage solution. A double batch of [place] G cement was mixed. I did add an additional gram vancomycin due to his history of autoimmune disease/psoriasis. A Biomet Vanguard size 75 right posterior Byce femoral component, size 75 tibial tray, 10 mm posterior Byce polyethylene insert, and a 31 x 8 all poly patella then cemented in place. The knee was brought out into full extension till cement hardened. Final symmetric ultrasound performed. The pericapsular tissues were injected with total of 100 cc of Ortho mix. Patient did receive 1 g tranexamic acid. The tourniquet was then let down for final tourniquet time was 66 minutes. Hemostasis assured use electrocautery. Extensor Meclomen closed with combination 1 PDS suture #1 Vicryl suture in a empsyn-ly-ahstz fashion. Extensor Meclomen checked found be intact and subcutaneous tissue then closed with 2 Dexon suture in a buried interrupted fashion skin was closed skin earline. Leg was then cleaned and dried and a sterile dressing composed Xeroform, 4 fours, sterile cast padding, Doyle bandage were applied. Patient then transferred to the recovery room in stable condition. Patient tolerated procedure well and there were no complications. Manuel Singletary, my physician librarian assistant, was present for the entire procedure. His assistance was essential and required for appropriate patient positioning, prepping and draping, surgical exposure, performing the technical details of the operation, placement the implants, closure of the wound, and placement of the sterile bandage. I attest to the content of the Intraoperative Record and any orders documented therein. Any exceptions are noted below.
--- NOTE | 2024-04-23 13:52 | Anesthesiology Progress Note ---
Date of Service April 23, 2024 Anesthesia Post Procedure Vital Signs Vital Signs: Temp Pulse Resp BP Pulse Ox O2 Del Method O2 Flow Rate 04/23/24 13:40 56 L 14 126/77 98 Room Air 04/23/24 13:30 61 14 128/67 98 Room Air 04/23/24 13:20 57 L 18 120/64 97 Oxymask 6 04/23/24 13:12 36.1 C L 73 14 94/61 L 97 Oxymask 6 04/23/24 09:12 36.6 C 58 L 20 133/82 99 Room Air Transfer of Care Handoff Completed per policy Notes Mental Status: alert / awake / arousable Patient Amnestic to Procedure: Yes Nausea / Vomiting: adequately controlled Pain: adequately controlled Airway Patency, RR, SpO2: stable & adequate BP & HR: stable & adequate Hydration State: stable & adequate Neuraxial Anesthesia: was administered and sensory block is resolving Anesthetic Complications: no major complications apparent
--- NOTE | 2024-04-23 14:37 | XRay Report ---
XR knee RT 1 or 2V routine CLINICAL HISTORY: Surgical Post Op TECHNIQUE: 2 views of the right knee were obtained. Comparison: Comparison is made to knee radiographs 08/15/2023 FINDINGS: Patient is status post total knee arthroplasty with expected postsurgical changes including soft tiss ue swelling and subcutaneous emphysema. No periarticular lucency or hardware fracture is seen. IMPRESSION: Expected postoperative appearance status post placement of total knee arthroplasty. ACT 112: Negative or not required by law. Electronically signed by: Perico Cobb M.D. 04/23/2024 1:55 PM
[2024-04-23] MEDS ORDERED: NALOXONE HCL 0.4 MG/1 ML VIAL/CARP IV PRN (14:42)
[2024-04-23] MEDS ORDERED: ALUMINUM/MAGNESIUM SUSP 30 ML UDC PO PRN (14:42)
[2024-04-23] MEDS ORDERED: HYDROmorphone INJ 0.5 MG/0.5 ML SYR IV PRN (14:42)
[2024-04-23] MEDS ORDERED: MAGNESIUM HYDROXIDE SUSP 30 ML UDC PO PRN (14:42)
[2024-04-23] MEDS ORDERED: bisacodyL 10 MG SUPP PR PRN (14:42)
[2024-04-23] MEDS ORDERED: oxyCODONE HCL IR 5 MG TAB (IMMEDIATE RELEASE) PO PRN (14:42)
[2024-04-23] MEDS ORDERED: METOCLOPRAMIDE HCL INJ 5 MG/ML 2 ML VIAL IV PRN (14:42)
[2024-04-23] MEDS: KETOROLAC TROMETHAMINE 15 MG/ML VIAL IV SCH (15:51)
[2024-04-23] MEDS: Scopolamine CHECK PATCH PLACEMENT SCH (15:52)
[2024-04-23] MEDS: ASCORBIC ACID 500 MG TAB PO SCH (15:52)
[2024-04-23] MEDS: FLECAINIDE ACETATE 100 MG TABLET PO SCH (15:52)
[2024-04-23] MEDS: TRANEXAMIC ACID / 0.7% NACL 1,000 MG/100 ML BAG IV SCH (19:40)
[2024-04-23] MEDS: METOPROLOL TARTRATE 25 MG TAB PO SCH (19:52)
[2024-04-23] MEDS: DOCUSATE SODIUM 100 MG CAP PO SCH (19:53)
[2024-04-23] MEDS: SENNA 8.6 MG TAB PO SCH (19:53)
[2024-04-23] MEDS ORDERED: SENNA 8.6 MG TAB PO SCH (21:00)
[2024-04-24 02:40] VITALS: TEMP 97.9
[2024-04-24] MEDS: LEVOTHYROXINE SODIUM 50 MCG TABLET PO SCH (02:41)
[2024-04-24 07:11] LABS: Hematocrit (blood only) 34.8 % (42.0-52.0); Hemoglobin 12.3 g/dl (14.0-18.0); Mean Corpuscular Hemoglobin 28.9 pg (25.0-34.0); Mean Corpuscular Hgb Conc 35.3 g/dL (32.0-36.0); Mean Corpuscular Volume 81.7 fL (80.0-100.0); Platelet Count 188 K/uL (130-400); RDW Coefficient of Variation 12.1 % (11.5-14.5); RDW Standard Deviation 35.3 fL (36.4-46.3); Red Blood Count 4.26 M/uL (4.70-6.10); White Blood Count 9.52 K/ul (4.8-10.8)
[2024-04-24 07:37] VITALS: BP 138/73; PULSE 59; RESP 18; O2SAT 97
[2024-04-24 07:38] LABS: BUN Creatinine Ratio 16.1 (10-20); Calcium 8.7 mg/dl (8.6-10.3); Creatinine Clr Calc Pharmacy 74.9 ml/min; Potassium 4.1 mmol/L (3.5-5.1)
--- NOTE | 2024-04-24 07:51 | Orthopedic Progress Note ---
Date of Service April 24, 2024 Assessment & Plan (1) Status post right knee replacement: Plan: 68-year-old gentleman postop day 1 from right knee replacement doing pretty well. Pains controlled. He is neurologically intact. Plan: 1. DVT prophylaxis including Thiede teds, SCDs, and will start him back on his Eliquis dose today. Will start him on a half a dose today and a full dose tomorrow. 2. PT/OT. Weight-bear as tolerated. Right total knee protocol. 3. Pain control. Doing okay with current pain regimen. 4. Disposition. Plan to discharge to home with some home health if he does okay in therapy today. (2) Hypertension: (3) Atrial fibrillation: (4) Hypothyroidism: Admission and Anticipated Discharge Date Admission Date: April 23, 2024 Subjective 68-year-old gentleman postop day 1 from a right knee replacement. He is doing pretty well. Had a pretty good night. Pains controlled. No chest pain or shortness of breath. Not feeling dizzy or lightheaded. Physical Exam Physical Exam: Physical examination is a pleasant middle-age male. He is lying in bed looks quite comfortable this morning. Examination of the leg reveals dressing be clean dry and intact. He can do a good straight leg raise. Can dorsiflex and plantarflex his foot appropriately. He is neurologically intact. Respiratory: normal respiratory effort, lungs clear to auscultation Cardiovascular: RRR, no murmur, no edema Gastrointestinal (Abdomen): normal bowel sounds, soft, nontender, no hepatosplenomegaly Results & Data Vital Signs (Past 12 Hours) Vital Signs Temp Pulse Resp BP Pulse Ox O2 Del Method 04/24/24 07:34 36.6 C 59 L 18 138/73 97 Room Air 04/24/24 02:40 36.6 C 61 20 113/66 96 Room Air 04/23/24 23:19 37.1 C 63 18 119/66 96 Room Air 04/23/24 21:12 36.5 C 62 18 150/72 H 96 Room Air Laboratory Results Hemoglobin is 12.3. Hematocrit is 34.8. Electrolytes are stable.
[2024-04-24] MEDS: CHOLECALCIFEROL 125 MCG (5,000 UNITS) TAB PO SCH (08:27)
[2024-04-24] MEDS: TAMSULOSIN HCL 0.4 MG CAP PO SCH (08:29)
[2024-04-24] MEDS: CEROVITE ADV FORMULA TAB PO SCH (08:29)
[2024-04-24] MEDS: dexAMETHasone 10 MG in SYRINGE 0 ML IV SCH (08:54)
[2024-04-24] MEDS ORDERED: MULTIVITAMIN TAB PO SCH (09:00)
[2024-04-24] MEDS ORDERED: APIXABAN 2.5 MG TAB PO SCH (14:00)
--- NOTE | 2024-04-27 12:43 | Discharge Summary ---
Date of Service April 27, 2024 Admission HPI (Per Admitting) . The patient is a 68-year-old gentleman who now presents for surgical treatment of his right knee. He had his left knee replaced back in 2020 and is recovered pretty nicely from this. He continues to be limited by right knee pain discomfort. She been through extensive conservative treatment over the years which has become less successful. He has good and bad days but have more bad days. He has difficulty walking on some days. He is ready to have his right knee fixed. Admission Exam (Per Admitting) . Physical examination reveals a pleasant middle-age male but looks in reasonably good health. Examination of both knees reveals patient walks in dependently. Examination of the right knee reveals varus alignment to his knee. Got bony perjury medially. Small knee effusion. Range of motion 5-1 20. No instability. Examination left knee reveals well-healed incision. No swelling. Range of motion 0-1 20. Principal Diagnosis Same as "Discharge Diagnosis" noted below under Discharge Instructions. Discharge Data Procedures Performed Operation Date: 04/23/24 10:40 Actual Procedures p Right Total Knee Arthroplasty(Right) - Alcides Collado MD Ordered Studies 04/23/24 05:00 US - OR guided needle placemen Routine Hospital Course (1) Status post right knee replacement: This is a 68 year old patient admitted on 04/23/24 and underwent total knee arthroplasty. He tolerated the procedure well and there were no complications. Transferred to the PACU post op and later to the orthopedic floor for further care. He was given ancef for antibiotic prophylaxis. He was also given CORTES stockings, SCDs, and eliquis for DVT prophylaxis. Hemoglobin, hematocrit, and vital signs were monitored during his hospital stay and remained stable. Did not require any blood transfusions. There were no complications during his hospital stay. By post op day #1 the patient was tolerating a regular diet, pain was reasonably controlled with oral pain medicine, and he was participating in physical therapy. On post op day #1 the patient was discharged home and set up with home health care. He was given printed discharge instructions including prescriptions for extra strength tylenol, cefadroxil, zofran, senokot, flomax, and oxycodone. Continue physical therapy, weight bearing as tolerated. Continue CORTES stockings. Follow up approximately 2 weeks post op or sooner if there are problems or concerns. Discharge Plan Discharge Items Patient Disposition: Home - Home Health Services Reason For Visit: Right Knee Degenerative Joint Disease Discharge Diagnosis: Right Knee Replacement Activity: Per Instructions section Weightbearing: Full weightbearing Non-emergency contact: Surgeon Call non-emergency contact if: you have any medication questions Follow-up/Referrals: Billy Luevano MD [Primary Care Provider] - Diet: Regular Addtl Attending Provider Instructions: ACTIVITY RECOMMENDATIONS: Diet: * You may resume previous diet. Physical Therapy: * You will go to physical therapy three times each week for four to six weeks after your surgery in order to regain your knee range of motion and to retrain your knee to work properly. * It is just as important to make sure you are getting your knee perfectly st raight as it is to regain your knee bend. * Taking a pain pill an hour before therapy can help you have a more productive and comfortable therapy session. Home Exercise: * You were shown a series of exercises (heel props, heel slides, etc.) in the hospital. Do these exercises three to four times each day including the exercises you were shown in physical therapy. Walking: * Get up and walk several times each day. For the first four weeks, try not to stand or walk for more than one hour at a time. If you do stand or walk for more than one hour, you will not hurt anything, but your knee and leg will likely swell. * As you feel comfortable, you may change from the walker or crutches to a cane and then to independent walking. MEDICATIONS: New Medicine: * You will likely be taking one or more of these medications: 1. Oxycodone - A quick and shorter-acting pain medication. Take one to two tablets every six hours to lessen your pain. 2. Eliquis - Thins your blood to lessen the chance of forming a blood clot. * The most common side effects of pain medicine and iron are nausea and constipation. If nausea or constipation is too much of a problem or if you have any questions about your new medicines or doses, call [facility] at . We will try to help you manage these issues. "VERY IMPORTANT TO READ AND REVIEW" Pain: * The immediate post-operative period after knee replacement surgery is often quite painful. * You are given a prescription for pain medicine. You should take it, as dir ected, when you need it, especially before physical therapy and before going to bed. Pain that interferes with sleep is very common and can last several months. * You will likely need pain medicine for the first four to six weeks. It will not stop all of the pain. The pain will lessen and as you feel better, you may change to milder pain medicine such as Tylenol. * The most common side effects of pain medicine are nausea and constipation, so don't take more than you need. SPECIAL CARE INSTRUCTIONS: TEDs/Elastic Stockings: * The white elastic stockings help limit swelling and prevent blood clots from forming in your legs. The more you wear them, the more they work. * Wear them for six weeks after knee replacement surgery and four weeks after partial knee replacement. Incision Site Care: * Remove dressing postoperative day 2 and then shower. Keep direct shower pressure off the incision site. * After showering, cover earline with dry gauze and change daily or more frequently if the dressing is getting saturated with drainage. * Use the CORTES stockings to hold dressing in place. DO NOT apply tape on the skin. * May completely stop using bandage if wound is dry and no drainage * [place] are removed between 2 and 3 weeks post-op. If your follow-up appointment is made before 2 weeks, please have your appointment re- scheduled. It is too early to remove the earline. Prevention of Infection: * Take antibiotics one hour before any dental cleaning, dental work, urological procedure, gastrointestinal procedure or any invasive surgery in order to prevent your new joint from getting infected. * You may get the antibiotics from the doctor performing the procedure or you may call our office at [phone] before and we will call in a prescription to the pharmacy of your choice. Things to Watch For: * Drainage from the incision site that occurs more than one week after your surgery. * Severely increased knee/leg pain or swelling. * Increased redness at the incision site. * Fever above 102 degrees Fahrenheit. * Unusual chest pain or shortness of breath. * Unusual pain or burning with urination. Call [facility] at [phone] with any of the above problems or if you have any questions about your medicines or recovery. FOLLOW UP VISIT: Make an appointment to see your doctor for approximately two weeks after surgery for a progress check and staple removal by calling the office at [phone]. Pending Studies at Discharge: No Stand-Alone Forms: [facility], Smoking Cessation Medications and DC Order Prescriptions: Continued metoprolol tartrate 50 mg tablet 75 mg PO BID Qty: 270 3RF Eliquis 5 mg tablet 5 mg PO BID Qty: 180 3RF amoxicillin 500 mg tablet 2,000 mg PO ONCE Qty: 4 3RF Rx Instructions: 4 tabs 1 hour prior to dental procedure flecainide 100 mg tablet 100 mg PO Q12H Qty: 180 3RF sennosides [Senokot] 8.6 mg tablet 8.6 mg PO BID 14 Days Qty: 28 0RF Rx Instructions: Take two times a day to prevent/treat constipation acetaminophen [Tylenol Extra Strength] 500 mg tablet 1,000 mg PO TID 30 Days Qty: 180 0RF Rx Instructions: Take 3 times per day to lessen pain. cefadroxil 500 mg capsule 500 mg PO BID 7 Days Qty: 14 0RF Rx Instructions: Take 1 cap twice a day to prevent infection tamsulosin [Flomax] 0.4 mg capsule 0.4 mg PO DAILY Qty: 7 0RF Rx Instructions: Begin night BEFORE surgery to prevent urinary retention ondansetron 4 mg tablet,disintegrating 4 mg PO Q8 PRN (Reason: nausea) Qty: 20 1RF Rx Instructions: Take as needed for nausea Multivitamin 50 Plus Tablet 1 tab PO QAM cholecalciferol (vitamin D3) [Vitamin D3] 125 mcg (5,000 unit) Tablet 125 mcg PO QAM Discontinued acetaminophen [Tylenol Extra Strength] 500 mg Tablet 1,000 mg PO UD PRN (Reason: Pain) Rx Instructions: PER PT "TOOK 2 TABS ABOUT 1930, THEN ABOUT 1/2 HR LATER TOOK 1 MORE TAB". No Action levothyroxine 50 mcg tablet 50 mcg PO QAM Qty: 90 3RF tramadol 50 mg tablet 50 - 100 mg PO Q8H PRN (Reason: pain) Qty: 30 0RF Krames/Other Patient Handouts: DVT Post Op Prevention Admission Data Admit Date/Time: 04/23/24 13:10 Attending Provider: Alcides Collado Admit Provider: Alcides Collado Primary Care Provider: Billy Luevano Other Providers: Slava,Home Health Other Interventions: Discharge Summary Assessment (RN) Last Done: 04/24/24 10:37
== END 2024-04-24 11:50 | disposition home health service (06) ==
LOC: ASU 08:26 → 3W 08:26
DX: Z79.890 Hormone replacement therapy; Z79.01 Long term (current) use of anticoagulants; E03.9 Hypothyroidism, unspecified; M17.11 Unilateral primary osteoarthritis, right knee; Z79.899 Other long term (current) drug therapy; I48.0 Paroxysmal atrial fibrillation